=== PATIENT | female | born 1950 | race African-American/Black ===

== ENCOUNTER 2016-08-05 08:20 | Day surgery (SDC) | payer MEDICARE, OTHER ==
--- NOTE | 2016-07-30 11:25 | HISTORY AND PHYSICAL E ---
History and Physical NAME: VERITO ARCHIBALD : AGE: 66Y ADMITTED: 08/05/2016 ROOM: REFERRED BY: Dr. Ramos. CHIEF COMPLAINT: Patient admitted for upper scope. HISTORY OF PRESENT ILLNESS: Patient did have colonoscopy 2008. The patient does have history of colon polyps. At this time, patient for upper scope. We saw her in 2010, where she did have colorectal polyps. At this time, patient for upper scope. Colonoscopy 2010 showing polyps. Patient did have upper scope 2013, shows pre-pyloric, multiple gastric polyps. MEDICATION: Hydrochlorothiazide. PAST SURGICAL HISTORY: Complete hysterectomy. ALLERGY: PERCOCET. PHYSICAL EXAMINATION: VITAL SIGNS: Blood pressure 120/70. Pulse 80. Respirations 18. Temperature is 98. HEAD, EYES, EARS, NOSE, THROAT: Normal. ABDOMEN: Soft. NEUROLOGIC: Exam negative. CONCLUSION: 1. HISTORY OF PYLORIC GASTRIC POLYPS. 2. COLORECTAL POLYPS. 3. GALLBLADDER ULTRASOUND SHOWS A SMALL AMOUNT OF SLUDGE. LIVER AND KIDNEYS ARE NORMAL. 4. REFLUX. MEDICATIONS: 1. [place]-3. 2. Calcium. 3. Clonidine. PLAN: Upper scope. Today is 07/29; admit 08/05. DICTATING PHYSICIAN: GILA RODAS M.D. [id number] PHY#: [id number] ID: [id number] JOB#: [id number] ACCT: [id number] cc:GILA RODAS M.D. >
[2016-08-05] MEDS ORDERED: NALOXONE HCL INJ/PF 0.4 MG/1 ML SDV ONE (08:56)
[2016-08-05] MEDS ORDERED: GLYCOPYRROLATE INJ 0.4 MG/2 ML VIAL ONE (08:56)
[2016-08-05] MEDS ORDERED: ONDANSETRON HCL INJ/PF 4 MG/2 ML SDV ONE (08:56)
[2016-08-05] MEDS ORDERED: EPINEPHRINE INJ 1 MG/10 ML DISP.SYRIN ONE (08:57)
[2016-08-05] MEDS ORDERED: FLUMAZENIL INJ 0.5 MG/5 ML VIAL IV ONE (08:57)
[2016-08-05] MEDS: MIDAZOLAM 2 MG/2 ML INJ ONE ×3 (09:19→09:33)
[2016-08-05] MEDS: FENTANYL CITRATE INJ/PF 100 MCG/2 ML AMPUL ONE ×2 (09:21→09:23)
--- NOTE | 2016-08-05 10:10 | DISCHARGE SUMMARY E ---
Discharge Summary NAME: VERITO ARCHIBALD : 1950 AGE: 66Y ADMITTED: 08/05/2016 DISCHARGED: 08/05/2016 FINAL DIAGNOSIS: Gastric polyps. HISTORY: This 66-year-old female underwent upper endoscopy for reflux and gastric polyps. Today's upper scope shows no malignancy, benign-looking gastric polyps. She did have gastric polypectomy with no difficulties. DISCHARGE PLAN: 1. Soft diet. 2. Hold aspirin. 3. Continue Nexium. 4. Awaiting biopsy results. 5. Baseline CBC and CEA. 6. She is to see us in the office in the next few days. DICTATING PHYSICIAN: GILA RODAS M.D. [id number] [id number] PHY#: [id number] ID: [id number] JOB#: [id number] ACCT: [id number] cc:GILA RODAS M.D., SWETANG M.D. >
[2016-08-05 10:41] VITALS: BP 131/76
[2016-08-05 10:44] LABS: ABSOLUTE BASOPHILS # (AUTO) 0.1 10^3/uL (0.0-0.2); ABSOLUTE EOSINOPHILS # (AUTO) 0.1 10^3/uL (0.0-0.6); ABSOLUTE LYMPHOCYTES (AUTO) 1.8 10^3/uL (0.5-4.7); ABSOLUTE MONOCYTES (AUTO) 0.8 10^3/uL (0.1-1.4); BASOPHILS % (AUTO) 1.4 % (0-2); EOSINOPHILS % (AUTO) 2.6 % (0-6); HEMOGLOBIN 12.5 g/dL (12.0-15.5); HGB HCT DIFFERENCE -0.5; LYMPHOCYTES % (AUTO) 37.4 % (13-45); MEAN CORPUSCULAR VOLUME 88 fl (80-97); MONOCYTES % (AUTO) 15.8 % (3-13); RED BLOOD COUNT 4.32 10^6/uL (3.72-5.28); SEGMENTED NEUTROPHILS % (AUTO) 42.8 % (42-78); WHITE BLOOD COUNT 4.8 10^3/uL (4.0-10.5)
--- NOTE | 2016-08-05 12:41 | OPERATIVE REPORT E ---
Operative Report NAME: VERITO ARCHIBALD : 1950 AGE: 66Y DATE OF SURGERY: ROOM: PREOPERATIVE DIAGNOSIS: Gastric polyps, reflux. POSTOPERATIVE DIAGNOSIS: Esophagitis, mild. Gastric polyps. Duodenitis. Mild gastritis. OPERATION: Esophagoscopy, gastroscopy, duodenoscopy. SURGEON: GILA RODAS M.D. ANESTHESIA: The patient is allergic to Xylocaine, so no spray was done. She was adequately sedated with Versed 3 and fentanyl 50. TISSUE REMOVED OR ALTERED: 1. Gastric biopsy for H. pylori. 2. Gastric polyp injected and resected, 0.5 cm in size. PROCEDURE: The baby scope was passed under guided vision. No difficulties. Esophagoscopy: Junction at 36 cm. Small hiatus hernia, thickening mucosa at the junction. Mild esophagitis. No stricture. Gastroscopy: Multiple sessile small benign polyps in the gastric antrum. In the gastric body, there was a pedunculated 1 cm polyp which was injected and resected. Nice clotting, no bleeding. Duodenoscopy: Mild duodenitis. DISCHARGE PLAN: Full liquid. Hold aspirin for a few days. Continue Nexium. Awaiting biopsy results. The patient is to see us in the office in the next few days. DICTATING PHYSICIAN: GILA RODAS M.D. [id number] [id number] [facility]#: [id number] ID: [id number] JOB#: [id number] ACCT: [id number] cc:GILA RODAS M.D., SWETANG M.D. >
== END 2016-08-05 10:45 | disposition home or self-care (01) ==
LOC: END 08:20
PROVIDERS: ATTEND Specialist
PROC: 0DB68ZX Excision of Stomach, Via Natural or Artificial Opening Endoscopic, Diagnostic (ICD-10-PCS; principal; 2016-08-05 09:00)
PROC: 3E0G8GC Introduction of Other Therapeutic Substance into Upper GI, Via Natural or Artificial Opening Endoscopic (ICD-10-PCS; 2016-08-05 09:00)
PROC: 0DB68ZX Excision of Stomach, Via Natural or Artificial Opening Endoscopic, Diagnostic (ICD-10-PCS; 2016-08-05 09:00)
DX: K21.0 Gastro-esophageal reflux disease with esophagitis (principal); K29.50 Unspecified chronic gastritis without bleeding; K31.7 Polyp of stomach and duodenum; R97.0 Elevated carcinoembryonic antigen [CEA]; K83.8 Other specified diseases of biliary tract; K29.80 Duodenitis without bleeding; Z79.899 Other long term (current) drug therapy; Z88.5 Allergy status to narcotic agent
CPT/HCPCS: 43236; 43239; 43251; 36415; 82378; 85025; 88342 ×2; 88305 ×2; J2250; J3010; J2405; J0171; J2310; J3490

== ENCOUNTER → 2016-08-06 | Outpatient (CLI) | payer MEDICARE, OTHER ==
[2016-08-07 11:06] LABS: BLOOD UREA NITROGEN 9 mg/dL (7-20); CALCIUM 9.7 mg/dL (8.4-10.2); CHLORIDE 104 mmol/L (98-107); CREATININE RESULT 0.66 mg/dL (0.52-1.25); GLUCOSE 90 mg/dL (75-110); POTASSIUM 4.4 mmol/L (3.6-5.0)
[2016-08-07 11:07] LABS: CARBON DIOXIDE 30 mmol/L (22-30)
[2016-08-07 11:08] LABS: ANION GAP 11 (5-19); SODIUM 144.6 mmol/L (137-145)
[2016-08-07 15:40] LABS: APPEARANCE,URINE CLEAR; BILIRUBIN,URINE NEGATIVE (NEGATIVE); GLUCOSE, URINE NEGATIVE (NEGATIVE); KETONES,URINE NEGATIVE (NEGATIVE); LEUKOCYTE ESTERASE,URINE NEGATIVE (NEGATIVE); NITRITE,URINE NEGATIVE (NEGATIVE); PROTEIN,URINE NEGATIVE (NEGATIVE); URINE SPECIFIC GRAVITY 1.008; UROBILINOGEN,URINE NEGATIVE mg/dL (<2.0)
[2016-08-07 16:05] LABS: ABSOLUTE BASOPHILS # (AUTO) 0.1 10^3/uL (0.0-0.2); ABSOLUTE EOSINOPHILS # (AUTO) 0.1 10^3/uL (0.0-0.6); ABSOLUTE LYMPHOCYTES (AUTO) 2.1 10^3/uL (0.5-4.7); ABSOLUTE MONOCYTES (AUTO) 0.7 10^3/uL (0.1-1.4); ABSOLUTE NEUT (AUTO) 1.6 10^3/uL (1.7-8.2); BASOPHILS % (AUTO) 1.9 % (0-2); EOSINOPHILS % (AUTO) 2.3 % (0-6); HEMATOCRIT 40.1 % (36.0-47.0); HEMOGLOBIN 13.1 g/dL (12.0-15.5); HGB HCT DIFFERENCE -0.8; LYMPHOCYTES % (AUTO) 46.1 % (13-45); MEAN CORPUSCULAR HEMOGLOBIN 28.9 pg (27.0-33.4); MEAN CORPUSCULAR HGB CONC 32.5 g/dL (32.0-36.0); MEAN CORPUSCULAR VOLUME 89 fl (80-97); MONOCYTES % (AUTO) 15.2 % (3-13); RED BLOOD COUNT 4.51 10^6/uL (3.72-5.28); RED CELL DISTRIBUTION WIDTH 14.3 % (11.5-14.0); SEGMENTED NEUTROPHILS % (AUTO) 34.5 % (42-78); WHITE BLOOD COUNT 4.6 10^3/uL (4.0-10.5)
--- NOTE | 2016-08-09 17:41 | EKG REPORT ---
SEVERITY:- BORDERLINE ECG - SINUS RHYTHM BORDERLINE T ABNORMALITIES, ANTERIOR LEADS : Confirmed by: Gisele Jung MD 09-Aug-2016 17:40:09
== END ==
LOC: OD 21:49
PROVIDERS: ATTEND Orthopaedic Surgery
DX: Z01.818 Encounter for other preprocedural examination (principal)
CPT/HCPCS: 36415; 71020; 80048; 81001; 85025; 93005; 93010

== ENCOUNTER 2016-08-29 08:00 | Day surgery (SDC) | payer MEDICARE, OTHER ==
--- NOTE | 2016-08-28 11:29 | HISTORY AND PHYSICAL E ---
History and Physical NAME: VERITO ARCHIBALD : 1950 AGE: 66Y ADMITTED: 08/29/2016 ROOM: Admit for colon screening. ALLERGIES: The patient allergic to PERCOCET. PATIENT MEDICATIONS: 1. [place]. 2. Calcium. 3. Nexium. CHIEF COMPLAINT: Colon screening. HISTORY: I saw the patient in 2004. She did have polyps on colonoscopy in 2004, rectosigmoid hyperplastic polyps. Colonoscopy in 2007 shows small polyps transverse colon, benign hyperplastic. Another colonoscopy done showing the following, the patient's colonoscopy showing polyps in 2013. The patient did have a history of polyps and admitted for colonoscopy. She does have a history of gastric polyps. PHYSICAL EXAMINATION: GENERAL: Pleasant, alert, oriented. VITAL SIGNS: Blood pressure 120/80, pulse 80, respirations 18, temperature 98. HEAD, EYES, EARS, NOSE AND THROAT: Normal. ABDOMEN: Soft. NEUROLOGIC EXAM: Negative. CONCLUSION: COLON SCREENING. PLAN: Colonoscopy. REVIEW OF SYSTEMS: History of reflux, polyps, hiatus hernia. The patient presented at this time regarding colon exam. She does have a recent history of upper scope and polypectomy. The patient did have chest x-ray atherosclerosis, slight tortuosity in the thoracic aorta, some thoracic osteophytosis hiatus hernia. CONCLUSION: 1. COLON SCREENING. 2. HISTORY OF POLYPS. PLAN: 1. Colonoscopy. 2. A planned colon exam. The patient will present at this time for colon screening. She does have a family history of colon cancer. PLAN: 1. Colon screening. 2. Colonoscopy admit 08/29/2016. DICTATING PHYSICIAN: GILA RODAS M.D. [id number] [id number] PHY#: [id number] ID: [id number] JOB#: [id number] ACCT: [id number] cc:Mary BABIN M.D. >
[~2016-08-29 08:00] MED LIST: EPINEPHRINE INJ 1 MG/10 ML DISP.SYRIN ONE; FLUMAZENIL INJ 0.5 MG/5 ML VIAL IV ONE; GLUCAGON,HUMAN RECOMB 1 MG INJ ONE; GLYCOPYRROLATE INJ 0.4 MG/2 ML VIAL ONE; LIDOCAINE 2% JELLY 30 ML TUBE ONE; MIDAZOLAM 2 MG/2 ML INJ ONE; NALOXONE HCL INJ/PF 0.4 MG/1 ML SDV ONE; ONDANSETRON HCL INJ/PF 4 MG/2 ML SDV ONE
[2016-08-29] MEDS: MIDAZOLAM 2 MG/2 ML INJ ONE ×2 (08:33→08:41)
[2016-08-29] MEDS: FENTANYL CITRATE INJ/PF 100 MCG/2 ML AMPUL ONE ×3 (08:35→08:43)
[2016-08-29 10:04] VITALS: BP 142/82
[2016-08-29 10:12] LABS: ABSOLUTE EOSINOPHILS # (AUTO) 0.1 10^3/uL (0.0-0.6); ABSOLUTE LYMPHOCYTES (AUTO) 1.7 10^3/uL (0.5-4.7); ABSOLUTE MONOCYTES (AUTO) 0.6 10^3/uL (0.1-1.4); ABSOLUTE NEUT (AUTO) 3.8 10^3/uL (1.7-8.2); BASOPHILS % (AUTO) 0.7 % (0-2); EOSINOPHILS % (AUTO) 1.3 % (0-6); HEMATOCRIT 41.2 % (36.0-47.0); HEMOGLOBIN 13.1 g/dL (12.0-15.5); HGB HCT DIFFERENCE -1.9; LYMPHOCYTES % (AUTO) 26.5 % (13-45); MEAN CORPUSCULAR HEMOGLOBIN 28.7 pg (27.0-33.4); MEAN CORPUSCULAR HGB CONC 31.7 g/dL (32.0-36.0); MEAN CORPUSCULAR VOLUME 90 fl (80-97); MONOCYTES % (AUTO) 10.2 % (3-13); RED BLOOD COUNT 4.56 10^6/uL (3.72-5.28); SEGMENTED NEUTROPHILS % (AUTO) 61.3 % (42-78); WHITE BLOOD COUNT 6.3 10^3/uL (4.0-10.5)
--- NOTE | 2016-08-31 18:32 | DISCHARGE SUMMARY E ---
Discharge Summary NAME: VERITO ARCHIBALD : 1950 AGE: 66Y ADMITTED: 08/29/2016 DISCHARGED: 08/29/2016 HISTORY: The patient is a 66-year-old who underwent colon screening today showing 2 mm polyp sigmoid, 3 mm polyp transverse colon. FINAL DIAGNOSIS: Colon polyps. DISCHARGE PLAN: 1. Hold aspirin. 2. Baseline CBC, CEA. 3. Consider followup colonoscopy 2 years to be done in the OR with anesthesia standby. 4. Awaiting biopsy. 5. Soft diet. 6. Followup office visit 1 week. DICTATING PHYSICIAN: GILA RODAS M.D. [id number] PHY#: [id number] ID: [id number] JOB#: [id number] ACCT: [id number] cc:GILA RODAS M.D. >
--- NOTE | 2016-08-31 18:32 | OPERATIVE REPORT E ---
Operative Report NAME: VERITO ARCHIBALD : 1950 AGE: 66Y DATE OF SURGERY: 08/29/2016 ROOM: PREOPERATIVE DIAGNOSIS: COLON SCREENING. POSTOPERATIVE DIAGNOSES: 1. A 2 MM POLYP SIGMOID, BIOPSY OBTAINED. 2. A 3 MM POLYP MIDTRANSVERSE COLON, BIOPSY OBTAINED. OPERATION: Colonoscopy to the cecum. SURGEON: GILA RODAS M.D. ANESTHESIA: Versed 3, fentanyl 100. TISSUE REMOVED OR ALTERED: 1. Biopsy polyp sigmoid. 2. Biopsy polyp midtransverse colon. FINDINGS: Redundant colon. No evidence of malignancy. Benign looking polyps sigmoid and transverse colon. Difficult redundant colon. The patient did have hysterectomy scar. Colonoscopy completed to the cecum. RECOMMENDATIONS: Awaiting biopsy. Hold aspirin 5 days. Consider followup colonoscopy 2 years. History of polyps and family history of colorectal polyps. PROCEDURE: Rectal exam; normal. Sigmoid; 2 mm polyp removed by biopsy. Descending colon; redundant. Transverse colon; difficult to intubate, adhesions. Small 3 mm polyp removed by 2 biopsies. Ascending colon; normal. Cecum; orifice of the appendix visualized. Scope withdrawn cecum, ascending, transverse, descending, sigmoid all the way to the rectum. CONCLUSIONS: 1. Polyp sigmoid 2 mm. 2. Polyp transverse colon 3 mm. RECOMMENDATIONS: Recommend followup colonoscopy in 2 years. The patient may need to be done in the OR with conscious sedation and deep relaxation secondary to the redundant colon. DICTATING PHYSICIAN: GILA RODAS M.D. [id number] [id number] PHY#: [id number] ID: [id number] JOB#: [id number] ACCT: [id number] cc:GILA RODAS M.D., SWETANG M.D. >
== END 2016-08-29 10:05 | disposition home or self-care (01) ==
LOC: END 08:00
PROVIDERS: ATTEND Specialist
PROC: 0DBL8ZX Excision of Transverse Colon, Via Natural or Artificial Opening Endoscopic, Diagnostic (ICD-10-PCS; 2016-08-29)
PROC: 0DBN8ZX Excision of Sigmoid Colon, Via Natural or Artificial Opening Endoscopic, Diagnostic (ICD-10-PCS; principal; 2016-08-29 08:00)
DX: Z12.11 Encounter for screening for malignant neoplasm of colon (principal); D12.5 Benign neoplasm of sigmoid colon; D12.3 Benign neoplasm of transverse colon; K44.9 Diaphragmatic hernia without obstruction or gangrene; Z79.899 Other long term (current) drug therapy; R97.0 Elevated carcinoembryonic antigen [CEA]
CPT/HCPCS: 45380; 36415; 82378; 85025; 88305 ×2; J2250; J3010; J1610; J2405; J0171; J2310; J3490

== ENCOUNTER → 2016-09-22 | Outpatient (CLI) | payer MEDICARE, OTHER ==
[2016-09-22 11:18] LABS: ABSOLUTE BASOPHILS # (AUTO) 0.1 10^3/uL (0.0-0.2); ABSOLUTE EOSINOPHILS # (AUTO) 0.1 10^3/uL (0.0-0.6); ABSOLUTE LYMPHOCYTES (AUTO) 1.8 10^3/uL (0.5-4.7); ABSOLUTE MONOCYTES (AUTO) 0.6 10^3/uL (0.1-1.4); ABSOLUTE NEUT (AUTO) 2.1 10^3/uL (1.7-8.2); BASOPHILS % (AUTO) 1.3 % (0-2); EOSINOPHILS % (AUTO) 1.9 % (0-6); HEMATOCRIT 42.2 % (36.0-47.0); HEMOGLOBIN 13.2 g/dL (12.0-15.5); HGB HCT DIFFERENCE -2.6; LYMPHOCYTES % (AUTO) 39.7 % (13-45); MEAN CORPUSCULAR HEMOGLOBIN 28.3 pg (27.0-33.4); MEAN CORPUSCULAR HGB CONC 31.2 g/dL (32.0-36.0); MEAN CORPUSCULAR VOLUME 91 fl (80-97); MONOCYTES % (AUTO) 11.9 % (3-13); RED BLOOD COUNT 4.65 10^6/uL (3.72-5.28); RED CELL DISTRIBUTION WIDTH 14.1 % (11.5-14.0); SEGMENTED NEUTROPHILS % (AUTO) 45.2 % (42-78); WHITE BLOOD COUNT 4.7 10^3/uL (4.0-10.5)
[2016-09-22 11:31] LABS: APPEARANCE,URINE CLEAR; BILIRUBIN,URINE NEGATIVE (NEGATIVE); GLUCOSE, URINE NEGATIVE (NEGATIVE); KETONES,URINE NEGATIVE (NEGATIVE); LEUKOCYTE ESTERASE,URINE NEGATIVE (NEGATIVE); NITRITE,URINE NEGATIVE (NEGATIVE); PROTEIN,URINE NEGATIVE (NEGATIVE); UROBILINOGEN,URINE NEGATIVE mg/dL (<2.0)
[2016-09-22 11:49] LABS: ALANINE AMINOTRANSFERASE 21 U/L (9-52); ALBUMIN 4.2 g/dL (3.5-5.0); ALKALINE PHOSPHATASE 95 U/L (38-126); ANION GAP 12 (5-19); ASPARTATE AMINO TRANSFERASE 18 U/L (14-36); BILIRUBIN,DIRECT 0.2 mg/dL (0.0-0.4); BILIRUBIN,TOTAL 0.9 mg/dL (0.2-1.3); BLOOD UREA NITROGEN 13 mg/dL (7-20); CALCIUM 9.7 mg/dL (8.4-10.2); CARBON DIOXIDE 29 mmol/L (22-30); CHLORIDE 104 mmol/L (98-107); CREATINE KINASE 40 U/L (30-135); CREATININE RESULT 0.66 mg/dL (0.52-1.25); GLUCOSE 91 mg/dL (75-110); POTASSIUM 4.2 mmol/L (3.6-5.0); SODIUM 145.1 mmol/L (137-145); TOTAL PROTEIN 8.2 g/dL (6.3-8.2); URIC ACID 5.2 mg/dL (2.5-7.5)
[2016-09-22 11:52] LABS: C-REACTIVE PROTEIN < 5.0 mg/L (<10.0)
[2016-09-22 11:57] LABS: ERYTHROCYTE SEDIMENTATION RATE 38 mm/hr (0-30)
[2016-09-23 06:38] LABS: COMPLEMENT C4 28 mg/dL (14-44)
[2016-09-23 09:41] LABS: COMPLEMENT C3 146 mg/dL (82-167)
[2016-09-25 07:04] LABS: COMPLEMENT TOTAL (CH50) 60 U/mL (42-60)
== END ==
LOC: OD 10:17
PROVIDERS: ATTEND Internal Medicine Clinical Cardiac Electrophysiology
DX: M35.9 Systemic involvement of connective tissue, unspecified (principal); M15.0 Primary generalized (osteo)arthritis; M79.1 Myalgia; Z79.899 Other long term (current) drug therapy
CPT/HCPCS: 36415; 80053; 81001; 82550; 84550; 85025; 85652; 86140; 86160; 86162; 86225

== ENCOUNTER 2016-09-29 05:22 | Inpatient (IN) | payer MEDICARE, OTHER ==
[2016-09-22 11:25] LABS: HEMATOCRIT 42.2 % (36.0-47.0); HEMOGLOBIN 13.2 g/dL (12.0-15.5); HGB HCT DIFFERENCE -2.6; MEAN CORPUSCULAR HEMOGLOBIN 28.3 pg (27.0-33.4); MEAN CORPUSCULAR HGB CONC 31.2 g/dL (32.0-36.0); MEAN CORPUSCULAR VOLUME 91 fl (80-97); RED BLOOD COUNT 4.65 10^6/uL (3.72-5.28); RED CELL DISTRIBUTION WIDTH 14.1 % (11.5-14.0); WHITE BLOOD COUNT 4.7 10^3/uL (4.0-10.5)
[2016-09-22 11:28] LABS: APPEARANCE,URINE CLEAR; BILIRUBIN,URINE NEGATIVE (NEGATIVE); GLUCOSE, URINE NEGATIVE (NEGATIVE); KETONES,URINE NEGATIVE (NEGATIVE); LEUKOCYTE ESTERASE,URINE NEGATIVE (NEGATIVE); NITRITE,URINE NEGATIVE (NEGATIVE); PROTEIN,URINE NEGATIVE (NEGATIVE); UROBILINOGEN,URINE NEGATIVE mg/dL (<2.0)
[2016-09-22 11:56] LABS: BLOOD UREA NITROGEN 13 mg/dL (7-20); CALCIUM 9.7 mg/dL (8.4-10.2); CARBON DIOXIDE 29 mmol/L (22-30); CHLORIDE 104 mmol/L (98-107); CREATININE RESULT 0.66 mg/dL (0.52-1.25); GLUCOSE 91 mg/dL (75-110); POTASSIUM 4.2 mmol/L (3.6-5.0); SODIUM 145.1 mmol/L (137-145)
[2016-09-22 11:57] LABS: ANION GAP 12 (5-19)
[~2016-09-29 05:22] MED LIST changes: +BUPIVACAINE INJ/PF LIPOSOME/PF 266 MG/20 ML SDV IJ PRN; +CEFAZOLIN INJ 1 GM VIAL IV PRN; -EPINEPHRINE INJ 1 MG/10 ML DISP.SYRIN ONE; -FLUMAZENIL INJ 0.5 MG/5 ML VIAL IV ONE; -GLUCAGON,HUMAN RECOMB 1 MG INJ ONE; -GLYCOPYRROLATE INJ 0.4 MG/2 ML VIAL ONE; +IBUPROFEN 800 MG/NS 250 ML IV PRN; +LANSOPRAZOLE 15 MG TAB.RAP.DR PO PRN; -LIDOCAINE 2% JELLY 30 ML TUBE ONE; -MIDAZOLAM 2 MG/2 ML INJ ONE; -NALOXONE HCL INJ/PF 0.4 MG/1 ML SDV ONE; -ONDANSETRON HCL INJ/PF 4 MG/2 ML SDV ONE; +OXYCODONE HCL SR 10 MG TABLET PO PRN; +SCOPOLAMINE HYDROBROMIDE 1.5 MG PATCH.TD72 TOP PRN; +VANCOMYCIN HCL 1,000 MG in DEXTROSE 5%-WATER 250 ML IV PRN
[2016-09-29] MEDS ORDERED: BUPIVACAINE INJ/PF LIPOSOME/PF 266 MG/20 ML SDV ONE (06:44)
[2016-09-29] MEDS ORDERED: THROMBIN (BOVINE) TOPICAL 20000 UNIT VIAL ONE (06:44)
[2016-09-29] MEDS ORDERED: THROMBIN (BOVINE) 5000 UNIT EPITAXIS KIT ONE (06:44)
[2016-09-29] MEDS ORDERED: DEXAMETHASONE SOD PHOSPHATE INJ 4 MG/1 ML VIAL ONE (06:51)
[2016-09-29] MEDS ORDERED: FENTANYL CITRATE INJ/PF 100 MCG/2 ML AMPUL ONE (06:51)
[2016-09-29] MEDS ORDERED: MIDAZOLAM 2 MG/2 ML INJ ONE (06:51)
[2016-09-29] MEDS ORDERED: PROPOFOL INJ 200 MG/20 ML VIAL IV ONE (06:52)
[2016-09-29] MEDS ORDERED: TRANEXAMIC ACID INJ/PF 1,000 MG/10 ML SDV IV ONE ×2 (06:52→11:00)
[2016-09-29] MEDS ORDERED: ONDANSETRON HCL INJ/PF 4 MG/2 ML SDV ONE (06:52)
[2016-09-29] MEDS ORDERED: DIPHENHYDRAMINE HCL 50 MG/ML VIAL IV PRN ×2 (07:55→08:41)
[2016-09-29] MEDS ORDERED: MEPERIDINE HCL/PF INJ 25 MG/1 ML DISP.SYRIN IV PRN (07:55)
[2016-09-29] MEDS ORDERED: PROMETHAZINE HCL INJ 25 MG/1 ML VIAL IV PRN (07:55)
[2016-09-29] MEDS ORDERED: FENTANYL CITRATE INJ/PF 100 MCG/2 ML AMPUL IV PRN ×3 (07:55)
[2016-09-29] MEDS ORDERED: OXYCODONE HCL IR 5 MG TABLET PO PRN (08:41)
[2016-09-29] MEDS ORDERED: ONDANSETRON HCL INJ/PF 4 MG/2 ML SDV IV PRN ×2 (08:41→09:41)
[2016-09-29] MEDS ORDERED: MORPHINE SULFATE 10 MG/ML INJ IV PRN ×3 (08:41)
[2016-09-29] MEDS ORDERED: MAG HYDROX/AL HYDROX/SIMETH SUSP 30 ML UDCUP PO PRN (08:41)
[2016-09-29] MEDS ORDERED: ACETAMINOPHEN 325 MG TABLET PO PRN (08:41)
[2016-09-29] MEDS ORDERED: ZOLPIDEM TARTRATE 5 MG TABLET PO PRN (08:41)
[2016-09-29] MEDS ORDERED: RINGERS SOLUTION,LACTATED 1,000 ML IV PRN (08:41)
[2016-09-29] MEDS ORDERED: MORPHINE SULFATE 10 MG/ML INJ IM PRN (08:41)
[2016-09-29] MEDS ORDERED: CETIRIZINE 10 MG TABLET PO PRN (08:41)
--- NOTE | 2016-09-29 08:41 | Operative Report ---
Operative Report DATE OF SURGERY: 09/29/16 PREOPERATIVE DIAGNOSIS: Right knee osteoarthritis OPERATION: Knee arthroplasty SURGEON: STUART HERNANDEZ ANESTHESIA: Spinal TISSUE REMOVED OR ALTERED: Bone to pathology ESTIMATED BLOOD LOSS: 100 PROCEDURE: Implants used: Femur: Triathlon #6 PS femur Tibia: 5 tibia Tibial liner: 11 mm PS insert Patella: 32 millimeter oval patella Procedure with the patient supine on the operating table the right the limb is prepped and draped in a sterile fashion. The limb was elevated for exsanguination and the tourniquet inflated to 280 torr. A standard midline median parapatellar approach the knee is taken. Access is gained to the femoral canal through the intercondylar notch. Intramedullary alignment instrumentation used to resect 10 mm of distal femur in 5 of valgus. Sizing guide indicated a size 6 femur. Appropriate cutting jig is then used to fashion anterior posterior and chamfer cuts. A trial reduction femurs performed and this is judged to be adequate. Attention was next turned to the tibia. Using an extra medullary alignment system to millimeters was resected off the medial tibial plateau. This is sized to a size 5 tibia. A trial reduction was now performed with a six femur and a 5 tibia using a 11 millimeters spacer. It is full extension and central patellofemoral tracking. The articular surface the patella was next resected using an oscillating saw. All trial implants were removed. Polymethylmethacrylate is mixed and used to cement the above implants in place. On adequate curing the cement excess cement was removed the tourniquet was deflated hemostasis obtained the wound is then closed in layers using interrupted Vicryl followed by clau. A sterile compressive dressing was applied and the patient returned to recovery room in satisfactory condition.
--- NOTE | 2016-09-29 09:31 | RADIOLOGY REPORT (SQ) ---
EXAM DESCRIPTION: KNEE RIGHT 2 VIEWS COMPLETED DATE/TIME: 09/29/2016 9:20 am REASON FOR STUDY: Post OP -Long Cassette in PACU M17.11 UNILATERAL PRIMARY OSTEOARTHRITIS, RIGHT KN EE COMPARISON: None. NUMBER OF VIEWS: Two view(s). TECHNIQUE: Digital radiographic images of the right knee post-procedure. LIMITATIONS: None. FINDINGS: BONES: No worrisome or unexpected findings post-procedure. DEVICE: Total knee arthroplasty SOFT TISSUES: No worrisome findings. Expected postoperative soft tissue changes. IMPRESSION: SATISFACTORY POSTOPERATIVE RIGHT KNEE. TECHNICAL DOCUMENTATION: JOB ID: [id number] [employer]- All Rights Reserved
[2016-09-29] MEDS ORDERED: ASCORBIC ACID 500 MG TABLET PO SCH (10:00)
[2016-09-29] MEDS ORDERED: NITROGLYCERIN 5 MG (0.2 MG/HR) PATCH.TD24 TD SCH (10:00)
[2016-09-29] MEDS ORDERED: (PENDING PHARMACY ID) (Calcium Carbonate/Vitamin D3 [Calcium 500 + Vit D Caplet] 1 TAB) PO SCH (10:00)
[2016-09-29] MEDS ORDERED: AMLODIPINE BESYLATE 5 MG TABLET PO SCH ×2 (10:00→22:00)
[2016-09-29] MEDS ORDERED: (PENDING PHARMACY ID) (Pravastatin Sodium [Pravastatin Sodium] 20 MG) PO SCH (10:00)
[2016-09-29] MEDS ORDERED: (PENDING PHARMACY ID) (Telmisartan [Micardis 80 Mg Tablet] 80 MG) PO SCH (10:00)
[2016-09-29] MEDS ORDERED: SENNOSIDES/DOCUSATE 8.6-50 MG 1 EACH TABLET PO SCH ×2 (10:00→18:00)
[2016-09-29] MEDS: OXYCODONE HCL SR 10 MG TABLET PO SCH ×2 (11:15→22:04)
[2016-09-29] MEDS ORDERED: OXYCODONE HCL SR 10 MG TABLET PO ONE (13:30)
[2016-09-29] MEDS ORDERED: PREGABALIN 75 MG CAPSULE PO SCH ×2 (18:00→22:00)
[2016-09-29] MEDS: IBUPROFEN 800 MG in NORMAL SALINE 250 ML IV SCH (18:03)
[2016-09-29] MEDS: CALCIUM CARBONATE 250 MG/VITAMIN D3 125 UNIT TABLET PO SCH (18:05)
[2016-09-29] MEDS ORDERED: VANCOMYCIN HCL 1,000 MG in DEXTROSE 5%-WATER 250 ML IV ONE (20:42)
[2016-09-29] MEDS ORDERED: RIVAROXABAN 10 MG TABLET PO SCH (22:00)
[2016-09-29] MEDS ORDERED: METOPROLOL TARTRATE 50 MG TABLET PO SCH (22:00)
[2016-09-30] MEDS: IBUPROFEN 800 MG in NORMAL SALINE 250 ML IV SCH (03:19)
[2016-09-30 06:00] LABS: ANION GAP 9 (5-19); BLOOD UREA NITROGEN 20 mg/dL (7-20); CALCIUM 9.1 mg/dL (8.4-10.2); CARBON DIOXIDE 25 mmol/L (22-30); CHLORIDE 104 mmol/L (98-107); CREATININE RESULT 0.72 mg/dL (0.52-1.25); GLUCOSE 105 mg/dL (75-110); POTASSIUM 3.9 mmol/L (3.6-5.0); SODIUM 138.4 mmol/L (137-145)
[2016-09-30] MEDS ORDERED: LANSOPRAZOLE 30 MG TAB.RAP.DR PO SCH (06:00)
[2016-09-30 06:07] LABS: HEMATOCRIT 35.1 % (36.0-47.0); HEMOGLOBIN 11.1 g/dL (12.0-15.5); HGB HCT DIFFERENCE -1.8; MEAN CORPUSCULAR HEMOGLOBIN 28.2 pg (27.0-33.4); MEAN CORPUSCULAR HGB CONC 31.8 g/dL (32.0-36.0); MEAN CORPUSCULAR VOLUME 89 fl (80-97); RED BLOOD COUNT 3.95 10^6/uL (3.72-5.28); RED CELL DISTRIBUTION WIDTH 14.1 % (11.5-14.0); WHITE BLOOD COUNT 9.4 10^3/uL (4.0-10.5)
--- NOTE | 2016-09-30 06:59 | PDOC DISCHARGE SUMMARY ---
General - Admit/Disc Date/PCP Admission Date/Primary Care Provider: 09/29/16 05:22 JACKSON MCGRATH MD Discharge Date: 09/30/16 - Discharge Diagnosis (1) Arthritis of right knee Is this a current diagnosis for this admission?: Yes - Additional Information Resuscitation Status: Full Code Discharge Activity: Balance Activity w/Rest, No Driving, No tub bath Home Medications: Telmisartan [Micardis 80 mg Tablet] 80 mg PO DAILY 05/06/11 Amlodipine Besylate [Norvasc 5 mg Tablet] 5 mg PO Q12 #0 tablet 10/03/15 Metoprolol Tartrate [Lopressor 50 mg Tablet] 50 mg PO Q12H #0 tablet 10/03/15 Nitroglycerin [Nitro-Dur 5 mg (0.2 mg/Hr) Transdermal Patch] 1 each TD DAILY # 0 patch.td24 10/03/15 Ascorbic Acid [Vitamin C 500 mg Tablet] 500 mg PO DAILY 07/22/16 Aspirin [Ecotrin 81 mg EC Tablet] 81 mg PO DAILY 07/22/16 Calcium Carbonate/Vitamin D3 [Calcium 500 + Vit D Caplet] 1 tab PO BID 07/22/16 Cetirizine HCl [Zyrtec 10 mg Tablet] 1 tab PO PRN PRN 07/22/16 Esomeprazole Mag Trihydrate [Nexium] 40 mg PO QAM 07/22/16 Multivitamin [One-A-Day Essential] 1 tab PO BID 07/22/16 [place]-3 Fatty Acids/Fish Oil [Fish Oil 1,000 mg Capsule] 2 tab PO DAILY Pravastatin Sodium 20 mg PO DAILY 07/22/16 Pravastatin Sodium 10 mg PO QAM 09/26/16 Oxycodone HCl [Oxy-Ir 5 mg Tablet] 5 mg PO Q6HP PRN #0 tablet 09/30/16 Rivaroxaban [Xarelto 10 mg Tablet] 10 mg PO QHS #0 tablet 09/30/16 History of Present Illness History of Present Illness: VERITO ARCHIBALD is a 66 year old female right knee pain and functional disability secondary osteoarthritis. Patient is admitted for an elective right knee arthroplasty. Hospital Course Hospital Course: Admitted through the operating room where she undergoes an uncomplicated right knee arthroplasty. She is returned to the floor in satisfactory condition. She ambulates 150 feet with physical therapy on the day of surgery. She substrate for discharge home with home health nursing and home health physical therapy. Physical Exam Vital Signs: Temp Pulse Resp BP Pulse Ox 36.8 C 67 16 117/82 96 09/30/16 00:20 09/30/16 00:20 09/30/16 00:20 09/30/16 00:20 09/30/16 00:20 Intake & Output 09/28/16 09/29/16 09/30/16 06:59 06:59 06:59 Intake Total 0 5088 Output Total 4525 Balance 0 563 Weight 118.1 kg General appearance: PRESENT: no acute distress Head exam: PRESENT: normocephalic Eye exam: PRESENT: EOMI Respiratory exam: PRESENT: unlabored Cardiovascular exam: PRESENT: RRR Pulses: PRESENT: +1 pedal pulses bilateral Vascular exam: PRESENT: normal capillary refill GI/Abdominal exam: PRESENT: soft Rectal exam: PRESENT: deferred Extremities exam: PRESENT: other - Lower extremity picot dressing is clean dry and intact. There is a small amount of pedal edema. Distal neurovascular examination is intact. 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 Neurological exam: PRESENT: alert, awake, oriented to person, oriented to place , oriented to time, oriented to situation. ABSENT: motor sensory deficit Psychiatric exam: PRESENT: appropriate affect, normal mood. ABSENT: homicidal ideation, suicidal ideation Skin exam: PRESENT: dry, intact, warm. ABSENT: cyanosis, rash Results Laboratory Results: 09/30/16 05:25 09/30/16 05:25 09/30/16 09/30/16 05:25 05:25 WBC 9.4 RBC 3.95 Hgb 11.1 L Hct 35.1 L MCV 89 MCH 28.2 MCHC 31.8 L RDW 14.1 H Plt Count 164 Sodium 138.4 Potassium 3.9 Chloride 104 Carbon Dioxide 25 Anion Gap 9 BUN 20 Creatinine 0.72 Est GFR ( Amer) > 60 Est GFR (Non-Af Amer) > 60 Glucose 105 Calcium 9.1 Impressions: Knee X-Ray 09/29/16 08:42 IMPRESSION: SATISFACTORY POSTOPERATIVE RIGHT KNEE. Status: Imported from PACS Plan Discharge Plan: Be discharged home with home health nursing, home health physical therapy, wheeled walker, bedside commode. Right knee picot dressing can be changed by the visiting nurse service on postop day 7. Follow-up will be with Dr. Emanuel and [facility] for surgery in 2 weeks for staple removal.
[2016-09-30] MEDS ORDERED: OXYCODONE HCL SR 10 MG TABLET PO SCH (07:30)
[2016-09-30] MEDS ORDERED: (PENDING PHARMACY ID) (Esomeprazole Mag Trihydrate [Nexium] 40 MG) PO SCH (08:00)
[2016-09-30] MEDS ORDERED: (PENDING PHARMACY ID) (Pravastatin Sodium [Pravastatin Sodium] 10 MG) PO SCH (08:00)
[2016-09-30] MEDS: CALCIUM CARBONATE 250 MG/VITAMIN D3 125 UNIT TABLET PO SCH (08:23)
[2016-09-30 08:37] VITALS: BP 141/93
[2016-09-30] MEDS ORDERED: LOSARTAN POTASSIUM 50 MG TABLET PO SCH (10:00)
[2016-09-30] MEDS ORDERED: ASCORBIC ACID 500 MG TABLET PO SCH (10:00)
[2016-09-30] MEDS ORDERED: PRENATAL VITAMIN W-O CA NO5/FE FUMARATE/FA CAPSULE PO SCH (10:00)
[2016-09-30] MEDS ORDERED: ATORVASTATIN CALCIUM 10 MG TABLET PO SCH (22:00)
== END 2016-09-30 10:59 | disposition home health service (06) | DRG 470 ==
LOC: INOR 05:22 → 4S 10:42
PROVIDERS: ADMIT Orthopaedic Surgery; ATTEND Orthopaedic Surgery
PROC: 0SRC0J9 Replacement of Right Knee Joint with Synthetic Substitute, Cemented, Open Approach (ICD-10-PCS; principal; 2016-09-29 07:30)
DX: M17.11 Unilateral primary osteoarthritis, right knee (principal); I10 Essential (primary) hypertension; Z96.652 Presence of left artificial knee joint; Z90.710 Acquired absence of both cervix and uterus; Z88.4 Allergy status to anesthetic agent; Z88.6 Allergy status to analgesic agent; Z79.899 Other long term (current) drug therapy; Z83.3 Family history of diabetes mellitus; Z82.49 Family history of ischemic heart disease and other diseases of the circulatory system
CPT/HCPCS: 01402; 36415; 80048; 81001; 85027; 88305; 88311; 94799; C1776; C9290; G8978-GP; G8979-GP; G8987-GO; G8988-GO; G8989-GO; J0690; J1100; J1741; J2250; J2405; J2704; J3010; J3370; J3490; J7050; J7060; J7120

== ENCOUNTER 2016-10-04 00:24 | Observation (INO) | payer MEDICARE, OTHER ==
[2016-10-04] MEDS ORDERED: VANCOMYCIN HCL INJ 1000 MG VIAL IV ONE (00:42)
[2016-10-04] MEDS ORDERED: CEFTRIAXONE INJ 1000 MG VIAL IV ONE (00:43)
--- NOTE | 2016-10-04 00:49 | ER Document Report ---
ED General - General Chief Complaint: Post Surgical Pain Stated Complaint: RIGHT KNEE PAIN Time Seen by Provider: 10/04/16 00:39 Notes: Patient is a 66-year-old female presents with complaint of pain in the right knee. She had surgery 5 days ago. His arthroplastic surgery on the right knee performed by Dr. Emanuel. Tonight she noticed increasing pain and swelling and redness and warmth to the right knee. No fevers. No vomiting. She is still able to flex and extend her knee but has some pain in doing so. No other complaints at this time. TRAVEL OUTSIDE OF THE [place] IN LAST 30 DAYS: No - Related Data Allergies/Adverse Reactions: hydrocodone bitartrate [From Vicodin] Allergy (Severe, Verified 08/29/16 07:13) swelling of lips, blisters lidocaine [Lidocaine] Allergy (Severe, Verified 08/29/16 07:13) CHANGES SKIN COLOR morphine Allergy (Intermediate, Verified 09/29/16 13:55) Pruritis acetaminophen [From Percocet] Adverse Reaction (Mild, Verified 09/29/16 13:55) Constipation oxycodone [From Percocet] Adverse Reaction (Mild, Verified 09/29/16 13:55) Constipation Past Medical History - Social History Smoking Status: Never Smoker Frequency of alcohol use: None Drug Abuse: None Family History: Reviewed & Not Pertinent Patient has suicidal ideation: No Patient has homicidal ideation: No - Past Medical History Cardiac Medical History: Reports: Hx Coronary Artery Disease, Hx Hypercholesterolemia, Hx Hypertension Denies: Hx Atrial Fibrillation, Hx Congestive Heart Failure, Hx Heart Attack , Hx Peripheral Vascular Disease, Hx Pulmonary Embolism, Hx Heart Murmur Pulmonary Medical History: Reports: Hx Pneumonia - 2009, Hx Sleep Apnea Denies: Hx Asthma, Hx Bronchitis, Hx COPD, Hx Respiratory Failure, Hx Tuberculosis Neurological Medical History: Denies: Hx Cerebrovascular Accident, Hx Seizures Endocrine Medical History: Reports: Hx Hypothyroidism. Denies: Hx Graves' Disease, Hx Hyperthyroidism Renal/ Medical History: Denies: Hx End Stage Renal Disease, Hx Kidney Stones, Hx Ovarian Cysts, Hx Peritoneal Dialysis, Hx Pelvic Inflammatory Disease Malignancy Medical History: Denies: Hx Breast Cancer, Hx Cervical Cancer, Hx Leukemia, Hx Lung Cancer, Hx Ovarian Cancer GI Medical History: Reports: Hx Gastroesophageal Reflux Disease, Hx Hiatal Hernia. Denies: Hx Crohn's Disease, Hx Irritable Bowel, Hx Liver Failure, Hx Ulcer Musculoskeltal Medical History: Reports Hx Arthritis, Denies Hx Fibromyalgia, Denies Hx Muscular Dystrophy Psychiatric Medical History: Traumatic Medical History: Denies: Hx Fractures Infectious Medical History: Denies: Hx HIV Past Surgical History: Reports: Hx Abdominal Surgery, Hx Hysterectomy, Hx Orthopedic Surgery - Left knee. Denies: Hx Appendectomy, Hx Bowel Surgery, Hx Section, Hx Cholecystectomy, Hx Colostomy, Hx Coronary Artery Bypass Graft, Hx Gastric Bypass Surgery, Hx Herniorrhaphy, Hx Mastectomy, Hx Pacemaker , Hx Tonsillectomy, Hx Tubal Ligation - Immunizations Hx Diphtheria, Pertussis, Tetanus Vaccination: No Hx Pneumococcal Vaccination: 03/23/12 Review of Systems - Review of Systems Notes: My Normal Review Basic REVIEW OF SYSTEMS: CONSTITUTIONAL : Denies fever, chills, or sweats. Denies recent illness. RESPIRATORY: Denies cough, cold, or chest congestion. Denies shortness of breath, difficulty breathing, or wheezing. MUSCULOSKELETAL: Right knee is swollen and red. SKIN: Denies rash or skin lesions. NEUROLOGICAL: Denies altered mental status or loss of consciousness. Denies headache. Denies weakness or paralysis or loss of use of either side. Denies problems with gait or speech. Denies sensory or motor loss. ALL OTHER SYSTEMS REVIEWED AND NEGATIVE. Physical Exam - Vital signs Vitals: Temp Pulse Resp BP Pulse Ox 98.3 F 73 18 111/70 97 10/04/16 00:29 10/04/16 00:29 10/04/16 00:29 10/04/16 00:29 10/04/16 00:29 - Notes Notes: General Appearance: Well nourished, alert, cooperative, no acute distress, no obvious discomfort. Well-appearing. Vitals: reviewed, See vital signs table. Eyes: PERRL, EOMI, Conjuctiva clear Mouth: No decreasd moisture Extremities: Patient has a linear postop bandage over the anterior aspect of the right knee. There is a negative pressure drain in the right knee. There is redness and erythema spreading from around the bandage. The knee is swollen. She is still able to flex and extend the knee without too much difficulty. Skin: warm, dry, appropriate color, no rash Neuro: speech clear, oriented x 3, normal affect, responds appropriately to questions. Course - Re-evaluation Re-evalutation: 10/04/16 01:43 Clinically patient has what appears to be a sub-cellulitis of the right knee. Currently I do not think she has a knee joint infection of her knee as she still has range of motion of the right knee. I did speak with Dr. Emanuel who agrees to admit the patient and he will reevaluate her in the morning. Dictation of this chart was performed using voice recognition software; therefore, there may be some unintended grammatical errors. - Vital Signs Vital signs: Temp Pulse Resp BP Pulse Ox 98.3 F 73 18 111/70 97 10/04/16 00:29 10/04/16 00:29 10/04/16 00:29 10/04/16 00:29 10/04/16 00:29 - Laboratory Result Diagrams: 10/04/16 00:48 10/04/16 00:48 Laboratory results interpreted by me: 10/04/16 00:48 RBC 3.41 L Hgb 9.6 L Hct 30.0 L Eosinophils % 7.4 H Absolute Eosinophils 0.7 H Discharge - Discharge Clinical Impression: Post op infection Qualifiers: Encounter type: initial encounter Qualified Code(s): T81.4XXA - Infection following a procedure, initial encounter Condition: Stable Disposition: ADMITTED OBSERVATION Admitting Provider: Dr. Emanuel Unit Admitted: Surgical Floor
[2016-10-04 01:01] LABS: ABSOLUTE BASOPHILS # (AUTO) 0.1 10^3/uL (0.0-0.2); ABSOLUTE EOSINOPHILS # (AUTO) 0.7 10^3/uL (0.0-0.6); ABSOLUTE MONOCYTES (AUTO) 1.1 10^3/uL (0.1-1.4); ABSOLUTE NEUT (AUTO) 5.1 10^3/uL (1.7-8.2); BASOPHILS % (AUTO) 1.2 % (0-2); EOSINOPHILS % (AUTO) 7.4 % (0-6); HEMOGLOBIN 9.6 g/dL (12.0-15.5); HGB HCT DIFFERENCE -1.2; LYMPHOCYTES % (AUTO) 21.8 % (13-45); MEAN CORPUSCULAR HEMOGLOBIN 28.3 pg (27.0-33.4); MEAN CORPUSCULAR HGB CONC 32.1 g/dL (32.0-36.0); MEAN CORPUSCULAR VOLUME 88 fl (80-97); MONOCYTES % (AUTO) 12.5 % (3-13); RED BLOOD COUNT 3.41 10^6/uL (3.72-5.28); RED CELL DISTRIBUTION WIDTH 13.6 % (11.5-14.0); SEGMENTED NEUTROPHILS % (AUTO) 57.1 % (42-78)
[2016-10-04 01:21] LABS: ANION GAP 10 (5-19); BLOOD UREA NITROGEN 13 mg/dL (7-20); CALCIUM 8.8 mg/dL (8.4-10.2); CARBON DIOXIDE 25 mmol/L (22-30); CHLORIDE 105 mmol/L (98-107); CREATININE RESULT 0.67 mg/dL (0.52-1.25); GLUCOSE 103 mg/dL (75-110); POTASSIUM 4.1 mmol/L (3.6-5.0); SODIUM 139.8 mmol/L (137-145)
[2016-10-04 01:53] LABS: ERYTHROCYTE SEDIMENTATION RATE 113 mm/hr (0-30)
[2016-10-04] MEDS ORDERED: GLUCAGON,HUMAN RECOMB 1 MG INJ SUBCUT PRN (03:09)
[2016-10-04] MEDS ORDERED: DEXTROSE 50%-WATER 25 GM/50 ML DISP.SYRIN IV PRN ×2 (03:09)
[2016-10-04] MEDS ORDERED: DEXTROSE 40% GEL 15 GM TUBE PO PRN ×2 (03:09)
[2016-10-04] MEDS ORDERED: OXYCODONE HCL IR 5 MG TABLET PO PRN (03:16)
[2016-10-04 06:34] LABS: ABSOLUTE BASOPHILS # (AUTO) 0.1 10^3/uL (0.0-0.2); ABSOLUTE EOSINOPHILS # (AUTO) 0.6 10^3/uL (0.0-0.6); ABSOLUTE LYMPHOCYTES (AUTO) 1.4 10^3/uL (0.5-4.7); ABSOLUTE MONOCYTES (AUTO) 1.1 10^3/uL (0.1-1.4); ABSOLUTE NEUT (AUTO) 4.4 10^3/uL (1.7-8.2); BASOPHILS % (AUTO) 0.8 % (0-2); HEMATOCRIT 28.5 % (36.0-47.0); HEMOGLOBIN 9.1 g/dL (12.0-15.5); HGB HCT DIFFERENCE -1.2; LYMPHOCYTES % (AUTO) 18.4 % (13-45); MEAN CORPUSCULAR HEMOGLOBIN 28.5 pg (27.0-33.4); MEAN CORPUSCULAR HGB CONC 31.8 g/dL (32.0-36.0); MEAN CORPUSCULAR VOLUME 90 fl (80-97); MONOCYTES % (AUTO) 14.8 % (3-13); RED BLOOD COUNT 3.19 10^6/uL (3.72-5.28); WHITE BLOOD COUNT 7.5 10^3/uL (4.0-10.5)
[2016-10-04 06:47] LABS: ANION GAP 9 (5-19); BLOOD UREA NITROGEN 11 mg/dL (7-20); CALCIUM 8.8 mg/dL (8.4-10.2); CARBON DIOXIDE 27 mmol/L (22-30); CHLORIDE 105 mmol/L (98-107); CREATININE RESULT 0.63 mg/dL (0.52-1.25); GLUCOSE 94 mg/dL (75-110); POTASSIUM 3.9 mmol/L (3.6-5.0); SODIUM 140.8 mmol/L (137-145)
[2016-10-04 07:28] LABS: ERYTHROCYTE SEDIMENTATION RATE 111 mm/hr (0-30)
[2016-10-04 08:20] VITALS: BP 120/61
--- NOTE | 2016-10-04 08:22 | PDOC H&P ---
History of Present Illness Admission Date/PCP: 10/04/16 03:08 JACKSON MCGRATH MD History of Present Illness: VERITO ARCHIBALD is a 66 year old female approximately 6 days status post right knee arthroplasty. Presented to emergency room with concerns of infection. The patient was admitted for observation. Past Medical History Cardiac Medical History: Reports: Coronary Artery Disease, Hyperlipidema, Hypertension Denies: Atrial Fibrillation, Congestive Heart Failure, Myocardial Infarction , Peripheral Vascular Disease, Pulmonary Embolism, Heart Murmur Pulmonary Medical History: Reports: Pneumonia - 2009, Sleep Apnea Denies: Asthma, Bronchitis, Chronic Obstructive Pulmonary Disease (COPD), Respiratory Failure, Tuberculosis Neurological Medical History: Denies: Seizures Endocrine Medical History: Reports: Hypothyroidism Denies: Hyperthyroidism Renal/ Medical History: Denies: End Stage Renal Disease Malignancy Medical History: Denies: Breast Cancer, Cervical Cancer, Leukemia, Lung Cancer, Ovarian Cancer GI Medical History: Reports: Gastroesophageal Reflux Disease, Hiatal Hernia Denies: Crohn's Disease Musculoskeltal Medical History: Reports: Arthritis Denies: Fibromyalgia Psychiatric Medical History: Hematology: Denies: Anemia, Hemophilia, Sickle Cell Disease Infectious Medical History: Denies: HIV Past Surgical History Past Surgical History: Reports: Hysterectomy, Orthopedic Surgery - Left knee Denies: Amputation, Appendectomy, Section, Cholecystectomy, Colostomy, Coronary Artery Bypass Graft, Gastric Bypass Surgery, Herniorrhaphy, Mastectomy, Pacemaker, Tonsillectomy, Tubal Ligation Social History Smoking Status: Never Smoker Frequency of Alcohol Use: None Hx Recreational Drug Use: No Drugs: None Hx Prescription Drug Abuse: No - Advance Directive Resuscitation Status: Full Code Family History Family History: Reviewed & Not Pertinent Parental Family History Reviewed: No Children Family History Reviewed: No Sibling(s) Family History Reviewed.: No Medication/Allergy Home Medications: Telmisartan [Micardis 80 mg Tablet] 80 mg PO DAILY 05/06/11 Amlodipine Besylate [Norvasc 5 mg Tablet] 5 mg PO Q12 #0 tablet 10/03/15 Metoprolol Tartrate [Lopressor 50 mg Tablet] 50 mg PO Q12H #0 tablet 10/03/15 Nitroglycerin [Nitro-Dur 5 mg (0.2 mg/Hr) Transdermal Patch] 1 each TD DAILY # 0 patch.td24 10/03/15 Ascorbic Acid [Vitamin C 500 mg Tablet] 500 mg PO DAILY 07/22/16 Aspirin [Ecotrin 81 mg EC Tablet] 81 mg PO DAILY 07/22/16 Calcium Carbonate/Vitamin D3 [Calcium 500 + Vit D Caplet] 1 tab PO BID 07/22/16 Cetirizine HCl [Zyrtec 10 mg Tablet] 1 tab PO PRN PRN 07/22/16 Esomeprazole Mag Trihydrate [Nexium] 40 mg PO QAM 07/22/16 Multivitamin [One-A-Day Essential] 1 tab PO BID 07/22/16 Dexter-3 Fatty Acids/Fish Oil [Fish Oil 1,000 mg Capsule] 2 tab PO DAILY Pravastatin Sodium 20 mg PO DAILY 07/22/16 Pravastatin Sodium 10 mg PO QAM 09/26/16 Oxycodone HCl [Oxy-Ir 5 mg Tablet] 5 mg PO Q6HP PRN #0 tablet 09/30/16 Rivaroxaban [Xarelto 10 mg Tablet] 10 mg PO QHS #0 tablet 09/30/16 Allergies/Adverse Reactions: hydrocodone bitartrate [From Vicodin] Allergy (Severe, Verified 08/29/16 07:13) swelling of lips, blisters lidocaine [Lidocaine] Allergy (Severe, Verified 08/29/16 07:13) CHANGES SKIN COLOR morphine Allergy (Intermediate, Verified 09/29/16 13:55) Pruritis acetaminophen [From Percocet] Adverse Reaction (Mild, Verified 09/29/16 13:55) Constipation oxycodone [From Percocet] Adverse Reaction (Mild, Verified 09/29/16 13:55) Constipation Review of Systems All systems: reviewed and no additional remarkable complaints except as stated - Denies fever sweats chills or other other constitutional symptoms Physical Exam Vital Signs: Temp Pulse Resp BP Pulse Ox 36.6 C 85 18 140/79 H 97 10/04/16 08:00 10/04/16 08:00 10/04/16 08:00 10/04/16 08:00 10/04/16 08:00 Intake & Output 10/03/16 10/04/16 10/05/16 06:59 06:59 06:59 Intake Total 0 Balance 0 Weight 106.9 kg General appearance: PRESENT: no acute distress Head exam: PRESENT: normocephalic Eye exam: PRESENT: EOMI Respiratory exam: PRESENT: unlabored Cardiovascular exam: PRESENT: RRR Pulses: PRESENT: +1 pedal pulses bilateral Vascular exam: PRESENT: normal capillary refill GI/Abdominal exam: PRESENT: soft Rectal exam: PRESENT: deferred Extremities exam: PRESENT: other - Right knee picot dressing is taken down. At this point this was the original postoperative dressing and nobody has actually looked at the incision at until this point. Is clean and dry. It is replaced with an OpSite. There is minimal surrounding induration. Neurological exam: PRESENT: alert, awake, oriented to person, oriented to place , oriented to time, oriented to situation. ABSENT: motor sensory deficit Psychiatric exam: PRESENT: appropriate affect, normal mood. ABSENT: homicidal ideation, suicidal ideation Skin exam: PRESENT: dry, intact, warm. ABSENT: cyanosis, rash Results Laboratory Results: 10/04/16 06:02 10/04/16 06:02 10/04/16 10/04/16 06:02 06:02 WBC 7.5 RBC 3.19 L Hgb 9.1 L Hct 28.5 L MCV 90 MCH 28.5 MCHC 31.8 L RDW 14.0 Plt Count 208 Seg Neutrophils % 58.0 Lymphocytes % 18.4 Monocytes % 14.8 H Eosinophils % 8.0 H Basophils % 0.8 Absolute Neutrophils 4.4 Absolute Lymphocytes 1.4 Absolute Monocytes 1.1 Absolute Eosinophils 0.6 Absolute Basophils 0.1 Sodium 140.8 Potassium 3.9 Chloride 105 Carbon Dioxide 27 Anion Gap 9 BUN 11 Creatinine 0.63 Est GFR ( Amer) > 60 Est GFR (Non-Af Amer) > 60 Glucose 94 Calcium 8.8 Status: Imported from PACS Assessment & Plan - Diagnosis (1) Knee joint replacement status Is this a current diagnosis for this admission?: YesPlan: 66-year-old black female postop day 6 from right knee arthroplasty. My clinical intuition regarding the wound is that this is benign. I do not see any concern with drainage, or erythema and induration out of proportion to what I we have expected for postop day 6 wound. The only concern I have at this point sedimentation rate is 113. - Time Time Spent: 50 to 70 Minutes Anticipated discharge: Home with Homehealth Within: within 24 hours
--- NOTE | 2016-10-10 12:11 | PDOC DISCHARGE SUMMARY ---
General - Admit/Disc Date/PCP Admission Date/Primary Care Provider: 10/04/16 03:08 JACKSON MCGRATH MD Discharge Date: 10/06/16 - Discharge Diagnosis (1) Knee joint replacement status Is this a current diagnosis for this admission?: Yes - Additional Information Resuscitation Status: Full Code Discharge Diet: As Tolerated, Regular Discharge Activity: Activity As Tolerated, Balance Activity w/Rest, No tub bath History of Present Illness History of Present Illness: Patient is a-year-old black female progressive right knee pain and functional disability who is admitted for right knee arthroplasty. Hospital Course Hospital Course: Is admitted to the operating room where she undergoes uncomplicated right knee arthroplasty. She is returned to the floor in satisfactory position. She seen by physical therapy begun on range of motion, strengthening, weightbearing as tolerated patient program. She makes excellent progress in this regard. Physical Exam Vital Signs: Temp Pulse Resp BP Pulse Ox 37.1 C 83 18 120/61 100 10/04/16 08:00 10/04/16 08:00 10/04/16 08:00 10/04/16 08:00 10/04/16 08:00 General appearance: PRESENT: mild distress Head exam: PRESENT: normocephalic Eye exam: PRESENT: EOMI Respiratory exam: PRESENT: unlabored Cardiovascular exam: PRESENT: RRR Pulses: PRESENT: +1 pedal pulses bilateral Vascular exam: PRESENT: normal capillary refill GI/Abdominal exam: PRESENT: soft Rectal exam: PRESENT: deferred Extremities exam: PRESENT: other - Right knee picot dressing is clean dry and intact. There is minor pedal edema. Distal neurovascular examination is intact. Neurological exam: PRESENT: alert, awake, oriented to person, oriented to place , oriented to time, oriented to situation. ABSENT: motor sensory deficit Psychiatric exam: PRESENT: appropriate affect, normal mood. ABSENT: homicidal ideation, suicidal ideation Skin exam: PRESENT: dry, intact, warm. ABSENT: cyanosis, rash Results Laboratory Results: 10/04/16 06:02 10/04/16 06:02 Status: Imported from PACS Plan Discharge Plan: Discharge home with home health nursing, home health physical therapy, wheeled walker, bedside commode. Visiting nurse service can change the right knee picot dressing and replaced with an OpSite on postop day 7. Patient will follow up with Dr. [facility] for surgery in 2 weeks for staple removal.
== END 2016-10-04 08:40 | disposition home or self-care (01) ==
LOC: ER 00:24 → UNDOADMOB 01:48 → EH 01:48 → 4S 02:53 → EH 03:08
PROVIDERS: ADMIT Orthopaedic Surgery; ATTEND Orthopaedic Surgery
DX: Z96.651 Presence of right artificial knee joint (principal); Z47.1 Aftercare following joint replacement surgery; I25.10 Atherosclerotic heart disease of native coronary artery without angina pectoris; I10 Essential (primary) hypertension; Z79.899 Other long term (current) drug therapy; Z79.82 Long term (current) use of aspirin
CPT/HCPCS: 99284; 96365; 36415; 85025; 85652; 80048; G0378; J0696; J3370

== ENCOUNTER 2017-02-18 01:24 | Emergency (ER) | payer MEDICARE, OTHER ==
[2017-02-18 01:39] VITALS: BP 151/91
[2017-02-18] MEDS ORDERED: OXYMETAZOLINE HCL 0.05% NASAL SPRAY 15 ML BOTTLE NASL ONE (02:32)
--- NOTE | 2017-02-18 02:47 | ER Document Report ---
ED ENT - General Chief Complaint: Nose Bleed Stated Complaint: NOSE BLEED Time Seen by Provider: 02/18/17 02:04 Notes: Patient is a 66-year-old female who presents with intermittent bleeding from the right nostril. Patient states she has had 3 total episodes today which she had a small amount of bleeding from the right nostril that was able be controlled using cold water. She denies any bleeding at time of presentation. She denies any additional symptoms including lightheadedness, syncope, or orthostasis. No history of prior nosebleeds in the past. She does take an aspirin but no additional anticoagulation. She does admit to picking the nostril. She has not seen her primary care doctor regarding today's concerns. Nothing improves or worsens her symptoms. She denies any trauma to the nose. TRAVEL OUTSIDE OF THE [place] IN LAST 30 DAYS: No - Related Data Allergies/Adverse Reactions: hydrocodone bitartrate [From Vicodin] Allergy (Severe, Verified 08/29/16 07:13) swelling of lips, blisters lidocaine [Lidocaine] Allergy (Severe, Verified 08/29/16 07:13) CHANGES SKIN COLOR morphine Allergy (Intermediate, Verified 09/29/16 13:55) Pruritis acetaminophen [From Percocet] Adverse Reaction (Mild, Verified 09/29/16 13:55) Constipation oxycodone [From Percocet] Adverse Reaction (Mild, Verified 09/29/16 13:55) Constipation Past Medical History - General Information source: Patient - Social History Smoking Status: Never Smoker Chew tobacco use (# tins/day): No Frequency of alcohol use: None Drug Abuse: None Family History: Reviewed & Not Pertinent Patient has suicidal ideation: No Patient has homicidal ideation: No - Past Medical History Cardiac Medical History: Reports: Hx Coronary Artery Disease, Hx Hypercholesterolemia, Hx Hypertension Denies: Hx Atrial Fibrillation, Hx Congestive Heart Failure, Hx Heart Attack , Hx Peripheral Vascular Disease, Hx Pulmonary Embolism, Hx Heart Murmur Pulmonary Medical History: Reports: Hx Pneumonia - 2009, Hx Sleep Apnea Denies: Hx Asthma, Hx Bronchitis, Hx COPD, Hx Respiratory Failure, Hx Tuberculosis Neurological Medical History: Denies: Hx Cerebrovascular Accident, Hx Seizures Endocrine Medical History: Reports: Hx Hypothyroidism. Denies: Hx Graves' Disease, Hx Hyperthyroidism Renal/ Medical History: Denies: Hx End Stage Renal Disease, Hx Kidney Stones, Hx Ovarian Cysts, Hx Peritoneal Dialysis, Hx Pelvic Inflammatory Disease Malignancy Medical History: Denies: Hx Breast Cancer, Hx Cervical Cancer, Hx Leukemia, Hx Lung Cancer, Hx Ovarian Cancer GI Medical History: Reports: Hx Gastroesophageal Reflux Disease, Hx Hiatal Hernia. Denies: Hx Crohn's Disease, Hx Irritable Bowel, Hx Liver Failure, Hx Pancreatitis, Hx Ulcer Musculoskeltal Medical History: Reports Hx Arthritis, Denies Hx Fibromyalgia, Denies Hx Muscular Dystrophy Psychiatric Medical History: Traumatic Medical History: Denies: Hx Fractures Infectious Medical History: Denies: Hx HIV Past Surgical History: Reports: Hx Abdominal Surgery, Hx Hysterectomy, Hx Orthopedic Surgery - Left knee. Denies: Hx Appendectomy, Hx Bowel Surgery, Hx Section, Hx Cholecystectomy, Hx Colostomy, Hx Coronary Artery Bypass Graft, Hx Gastric Bypass Surgery, Hx Herniorrhaphy, Hx Mastectomy, Hx Pacemaker , Hx Tonsillectomy, Hx Tubal Ligation - Immunizations Hx Diphtheria, Pertussis, Tetanus Vaccination: No Hx Pneumococcal Vaccination: 03/23/12 Review of Systems - Review of Systems Notes: Constitutional: Negative for fever. HENT: Negative for sore throat. Positive for nosebleed Eyes: Negative for visual changes. Cardiovascular: Negative for chest pain. Respiratory: Negative for shortness of breath. Gastrointestinal: Negative for abdominal pain, vomiting or diarrhea. Genitourinary: Negative for dysuria. Musculoskeletal: Negative for back pain. Skin: Negative for rash. Neurological: Negative for headaches, weakness or numbness. 10 point ROS negative except as marked above and in HPI. Physical Exam - Vital signs Vitals: Temp Pulse Resp BP Pulse Ox 98 F 64 22 H 151/91 H 95 02/18/17 01:27 02/18/17 01:27 02/18/17 01:27 02/18/17 01:27 02/18/17 01:27 Interpretation: Hypertensive Notes: PHYSICAL EXAMINATION: GENERAL: Well-appearing, well-nourished and in no acute distress. HEAD: Atraumatic, normocephalic. EYES: Pupils equal round and reactive to light, extraocular movements intact, sclera anicteric, conjunctiva are normal. ENT: nares patent, there are mild excoriations along the anterior septum of the right nostril. No active bleeding. NECK: Normal range of motion, supple without lymphadenopathy LUNGS: Breath sounds clear to auscultation bilaterally and equal. No wheezes rales or rhonchi. HEART: Regular rate and rhythm without murmurs ABDOMEN: Soft, nontender, normoactive bowel sounds. No guarding, no rebound. No masses appreciated. EXTREMITIES: Normal range of motion, no pitting or edema. No cyanosis. NEUROLOGICAL: No focal neurological deficits. Moves all extremities spontaneously and on command. PSYCH: Normal mood, normal affect. SKIN: Warm, Dry, normal turgor, no rashes or lesions noted. Course - Re-evaluation Re-evalutation: 02/18/17 02:33 Patient presents with an intermittent right nostril bleed that is not present at time of presentation. Patient has scant excoriations on the anterior septal wall but no evidence of active bleeding. She takes only an aspirin a day. Her vitals are within normal limits. She denies any additional acute complaints. I do not see an indication to check a CBC as she reports her bleeding at home was very mild amount. I have encouraged her to continue to apply Vaseline to the inside of the nostril to moisturize the area and have discouraged any further instrumentation or picking of the nostril. At this time will discharge with return precautions and follow-up recommendations. Verbal discharge instructions given a the bedside and opportunity for questions given. Medication warnings reviewed. Patient is in agreement with this plan and has verbalized understanding of return precautions and the need for primary care follow-up in the next 24-72 hours. - Vital Signs Vital signs: Temp Pulse Resp BP Pulse Ox 98 F 64 22 H 151/91 H 95 02/18/17 01:27 02/18/17 01:27 02/18/17 01:27 02/18/17 01:27 02/18/17 01:27 Discharge - Discharge Clinical Impression: Nosebleed Condition: Good Disposition: HOME, SELF-CARE Additional Instructions: You were seen today for a nosebleed. If this restarts please apply direct pressure to the area for 15 minutes without releasing pressure. You can use 4- 5 sprays the Afrin (oxymetazoline) spray that was given to you here in the emergency room into the affected side prior to applying the pressure. You need to apply vasaline or a similar product along the inside of the side of the nose that is bleeding twice daily to help heal the inside of your nose. Please return to emergency department if these measures do not control the bleeding. Please also return if you pass out, have significant pain of the nose or face, or any other symptoms that are concerning to you. Your primary care doctor regarding today's visit. Referrals: JACKSON MCGRATH MD [Primary Care Provider] - Follow up as needed
== END 2017-02-18 02:42 | disposition home or self-care (01) ==
LOC: ER 01:24
DX: R04.0 Epistaxis (principal)
CPT/HCPCS: 99283; J3490

== ENCOUNTER 2017-11-23 12:24 | Emergency (ER) | payer MEDICARE, OTHER ==
[2017-11-23 12:38] VITALS: BP 138/72
--- NOTE | 2017-11-23 12:47 | ER Document Report ---
ED Fall - General Chief Complaint: Fall Stated Complaint: FALL/CHECK KNEES Time Seen by Provider: 11/23/17 12:39 Mode of Arrival: Ambulatory Information source: Patient Notes: 67-year-old female presented ED for complaint of falling around limb 30 today. She states she was concerned about her bilateral knee replacements. She states she is not having any pain or discomfort at this time. She states there is swelling to the right knee but it is not painful. Patient is alert oriented respirations regular and unlabored speaking in full sentences walk with a even steady gait. Patient does have surgical incision scars to the right and left knee. She states the left knee replacement was done in 2016 in the right in 2017. TRAVEL OUTSIDE OF THE [place] IN LAST 30 DAYS: No - HPI Occurred: This morning Where: Home, Outdoors Context: Tripped Associated symptoms: None Location of injury/pain: Knee Quality of pain: No pain Severity: None Pain Level: Denies - Related data Allergies/Adverse Reactions: hydrocodone bitartrate [From Vicodin] Allergy (Severe, Verified 11/23/17 12:27) swelling of lips, blisters lidocaine [Lidocaine] Allergy (Severe, Verified 11/23/17 12:27) CHANGES SKIN COLOR morphine Allergy (Intermediate, Verified 11/23/17 12:27) Pruritis acetaminophen [From Percocet] Adverse Reaction (Mild, Verified 11/23/17 12:27) Constipation oxycodone [From Percocet] Adverse Reaction (Mild, Verified 11/23/17 12:27) Constipation Past Medical History - General Information source: Patient - Social History Smoking Status: Unknown if Ever Smoked Frequency of alcohol use: None Drug Abuse: None Lives with: Family Family History: Reviewed & Not Pertinent Patient has suicidal ideation: No Patient has homicidal ideation: No - Past Medical History Cardiac Medical History: Reports: Hx Coronary Artery Disease, Hx Hypercholesterolemia, Hx Hypertension Pulmonary Medical History: Reports: Hx Pneumonia - 2009, Hx Sleep Apnea EENT Medical History: Reports: None Neurological Medical History: Reports: None Endocrine Medical History: Reports: Hx Hypothyroidism Renal/ Medical History: Reports: None Malignancy Medical History: Reports: None GI Medical History: Reports: Hx Gastroesophageal Reflux Disease, Hx Hiatal Hernia Musculoskeletal Medical History: Reports Hx Arthritis, Reports Hx Musculoskeletal Deformity, Reports Hx Musculoskeletal Trauma Skin Medical History: Reports None Psychiatric Medical History: Reports: None Traumatic Medical History: Reports: Hx Fractures Infectious Medical History: Reports: None Past Surgical History: Reports: Hx Abdominal Surgery, Hx Hysterectomy, Hx Orthopedic Surgery - Left knee - Immunizations Hx Diphtheria, Pertussis, Tetanus Vaccination: No Hx Pneumococcal Vaccination: 03/23/12 Review of Systems - Review of Systems Constitutional: No symptoms reported EENT: No symptoms reported Cardiovascular: No symptoms reported Respiratory: No symptoms reported Gastrointestinal: No symptoms reported Genitourinary: No symptoms reported Female Genitourinary: No symptoms reported Musculoskeletal: Joint swelling. denies: Joint pain, Muscle pain Skin: No symptoms reported Hematologic/Lymphatic: No symptoms reported Neurological/Psychological: No symptoms reported -: Yes All other systems reviewed and negative Physical Exam - Vital signs Vitals: Temp Pulse Resp BP Pulse Ox 97.7 F 51 L 18 138/72 H 94 11/23/17 12:37 11/23/17 12:37 11/23/17 12:37 11/23/17 12:37 11/23/17 12:37 Interpretation: Normal - General General appearance: Appears well, Alert - HEENT Head: Normocephalic, Atraumatic Eyes: Normal Pupils: PERRL - Respiratory Respiratory status: No respiratory distress Chest status: Nontender Breath sounds: Normal Chest palpation: Normal - Cardiovascular Rhythm: Regular Heart sounds: Normal auscultation Murmur: No - Abdominal Inspection: Normal Distension: No distension Bowel sounds: Normal Tenderness: Nontender Organomegaly: No organomegaly - Back Back: Normal, Nontender - Extremities General upper extremity: Normal inspection, Nontender, Normal color, Normal ROM , Normal temperature General lower extremity: Nontender, Normal color, Normal ROM, Normal temperature , Normal weight bearing. No: Anu's sign Knee: Other - Mild swelling to the right knee no swelling to the left no pain to either - Neurological Neuro grossly intact: Yes Cognition: Normal Orientation: AAOx4 Niecy Coma Scale Eye Opening: Spontaneous Niecy Coma Scale Verbal: Oriented Niecy Coma Scale Motor: Obeys Commands Niecy Coma Scale Total: 15 Speech: Normal Motor strength normal: LUE, RUE, LLE, RLE Sensory: Normal - Psychological Associated symptoms: Normal affect, Normal mood - Skin Skin Temperature: Warm Skin Moisture: Dry Skin Color: Normal Course - Re-evaluation Re-evalutation: 11/23/17 21:31 Patient was having no pain to the knee. Patient is able to walk the same as she usually does. There was mild bruising to the knee. Patient was instructed to follow-up with her orthopedic by telephone tomorrow to schedule a follow-up appointment. Patient was discharged home with instructions for ibuprofen ice and elevation for the swelling. - Vital Signs Vital signs: Temp Pulse Resp BP Pulse Ox 97.7 F 51 L 18 138/72 H 94 11/23/17 12:37 11/23/17 12:37 11/23/17 12:37 11/23/17 12:37 11/23/17 12:37 Discharge - Discharge Clinical Impression: Contusion of right knee Qualifiers: Encounter type: initial encounter Qualified Code(s): S80.01XA - Contusion of right knee, initial encounter Fall Qualifiers: Encounter type: initial encounter Qualified Code(s): W19.XXXA - Unspecified fall, initial encounter Condition: Stable Disposition: HOME, SELF-CARE Additional Instructions: CONTUSION: Your injury has resulted in a contusion -- a crushing of the deep tissues. No injury to important structures was detected during the physician's exam. Contusions vary in the amount of pain they cause, and in the length of time required for healing. Typically, the area will become bruised, and will remain painful to touch for two or three weeks. However, most patients are back to working and playing within a few days. After the initial period of rest and cold-packs, your symptoms (together with the doctor's recommendations) will determine how rapidly you can get back to full activity. Usually this means "do what feels okay, but don't do things that hurt." If re-examination was recommended, it's important to follow up as instructed. Call the doctor or return any time if pain increases, if swelling becomes severe, if you develop numbness or weakness in an injured extremity, or if any other alarming symptoms occur. USE OF TYLENOL (ACETAMINOPHEN): Acetaminophen may be taken for pain relief or fever control. It's much safer than aspirin, offering a wider range of "safe" dosages. It is safe during . Some brand names are Tylenol, Panadol, Datril, Anacin 3, Tempra, and Liquiprin. Acetaminophen can be repeated every four hours. The following are maximum recommended dosages: WEIGHT Dose Drops Elixir Chewable( 80mg) (LBS.) drprs=droppers tsp=teaspoon 6 40 mg 0.4 ml (1/2) 6-11 80 mg 0.8 ml (full) tsp 1 tab 12-16 120 mg 1 1/2 drprs 3/4 tsp 1 1/2 tabs 17-23 160 mg 2 drprs 1 tsp 2 tabs 24-30 240 mg 3 drprs 1 1/2 tsp 3 tabs 30-35 320 mg 2 tsp 4 tabs 36-41 360 mg 2 1/4 tsp 4 1/2 tabs 42-47 400 mg 2 1/2 tsp 5 tabs 48-53 480 mg 3 tsp 6 tabs 54-59 520 mg 3 1/4 tsp 6 1/2 tabs 60-64 560 mg 3 1/2 tsp 7 tabs 65-70 600 mg 3 3/4 tsp 7 1/2 tabs 71-76 640 mg 4 tsp 8 tabs 77-82 720 mg 4 1/2 tsp 9 tabs 83-88 800 mg 5 tsp 10 tabs >89 pounds or adults 650 mg to 900 mg Acetaminophen can be repeated every four hours. Maximum dose not to exceed 4000 mg a day. These maximum recommended dosages are slightly higher than the dosages written on the product container, but these dosages are very safe and below the toxic dosage for acetaminophen. ICE PACKS: Apply ice packs frequently against the painful area. Many different schedules are recommended, such as "20 minutes on, 20 minutes off" or "one hour ice, two hours rest." If you need to work, you may need to go longer between ice treatments. You should plan to have the area ice packed AT LEAST one fourth of the time. The ice should be applied over the wrap, tape, or splint, or over a layer of cloth -- not directly against the skin. Some ice bags have a built-in cloth and can be put directly on the skin. FOLLOW-UP CARE: If you have been referred to a physician for follow-up care, call the physician s office for an appointment as you were instructed or within the next two days. If you experience worsening or a significant change in your symptoms, notify the physician immediately or return to the Emergency Department at any time for re-evaluation. Forms: Elevated Blood Pressure Referrals: JACKSON MCGRATH MD [Primary Care Provider] - Follow up as needed STUART HERNANDEZ MD [ACTIVE STAFF] - Follow up as needed
== END 2017-11-23 12:51 | disposition home or self-care (01) ==
LOC: ER 12:24
DX: S80.01XA Contusion of right knee, initial encounter (principal); W01.0XXA Fall on same level from slipping, tripping and stumbling without subsequent striking against object, initial encounter; Y93.9 Activity, unspecified; Y92.007 Garden or yard of unspecified non-institutional (private) residence as the place of occurrence of the external cause
CPT/HCPCS: 99283

== ENCOUNTER 2018-05-09 00:43 | Emergency (ER) | payer MEDICARE, OTHER ==
[2018-05-09] MEDS ORDERED: IBUPROFEN 800 MG TABLET PO ONE ×2 (01:03→02:59)
[2018-05-09] MEDS ORDERED: ONDANSETRON HCL INJ/PF 4 MG/2 ML SDV IV ONE (01:03)
[2018-05-09] MEDS ORDERED: NORMAL SALINE 1000 ML 1,000 ML IV ONE (01:03)
[2018-05-09] MEDS ORDERED: KETOROLAC TROMETHAMINE INJ/PF 30 MG/1 ML SDV IV ONE (01:56)
[2018-05-09 01:59] LABS: ABSOLUTE MONOCYTES (AUTO) 0.6 10^3/uL (0.1-1.4); ABSOLUTE NEUT (AUTO) 10.4 10^3/uL (1.7-8.2); BASOPHILS % (AUTO) 0.1 % (0-2); EOSINOPHILS % (AUTO) 0.3 % (0-6); HEMATOCRIT 41.8 % (36.0-47.0); HEMOGLOBIN 13.6 g/dL (12.0-15.5); LYMPHOCYTES % (AUTO) 8.1 % (13-45); MEAN CORPUSCULAR HEMOGLOBIN 29.1 pg (27.0-33.4); MEAN CORPUSCULAR HGB CONC 32.5 g/dL (32.0-36.0); MEAN CORPUSCULAR VOLUME 90 fl (80-97); MONOCYTES % (AUTO) 4.9 % (3-13); PLATELET COUNT 201 10^3/uL (150-450); RED BLOOD COUNT 4.68 10^6/uL (3.72-5.28); RED CELL DISTRIBUTION WIDTH 14.4 % (11.5-14.0); SEGMENTED NEUTROPHILS % (AUTO) 86.6 % (42-78); TOTAL CELLS COUNTED % (AUTO) 100 %
[2018-05-09 02:33] LABS: A TYPE INFLUENZA AG NEGATIVE (NEGATIVE); APPEARANCE,URINE CLEAR; B INFLUENZA AG NEGATIVE (NEGATIVE); BILIRUBIN,URINE NEGATIVE (NEGATIVE); COLOR,URINE STRAW; GLUCOSE, URINE NEGATIVE (NEGATIVE); KETONES,URINE NEGATIVE (NEGATIVE); LEUKOCYTE ESTERASE,URINE NEGATIVE (NEGATIVE); NITRITE,URINE NEGATIVE (NEGATIVE); PROTEIN,URINE NEGATIVE (NEGATIVE); URINE SPECIFIC GRAVITY 1.011; UROBILINOGEN,URINE NEGATIVE mg/dL (<2.0)
[2018-05-09 02:41] LABS: ALANINE AMINOTRANSFERASE 7 U/L (9-52); ALBUMIN 4.1 g/dL (3.5-5.0); ALKALINE PHOSPHATASE 83 U/L (38-126); ANION GAP 11 (5-19); ASPARTATE AMINO TRANSFERASE 15 U/L (14-36); BILIRUBIN,DIRECT 0.2 mg/dL (0.0-0.4); BILIRUBIN,TOTAL 0.6 mg/dL (0.2-1.3); BLOOD UREA NITROGEN 9 mg/dL (7-20); CALCIUM 8.9 mg/dL (8.4-10.2); CARBON DIOXIDE 26 mmol/L (22-30); CHLORIDE 110 mmol/L (98-107); GLUCOSE 125 mg/dL (75-110); LIPASE 111.2 U/L (23-300); POTASSIUM 3.9 mmol/L (3.6-5.0); SODIUM 146.8 mmol/L (137-145); TOTAL PROTEIN 7.4 g/dL (6.3-8.2)
--- NOTE | 2018-05-09 02:57 | RADIOLOGY REPORT (SQ) ---
EXAM DESCRIPTION: XR CHEST 1 VIEW COMPLETED DATE/TME: 05/09/2018 01:12 CLINICAL HISTORY: 67 years Female, fever, cough COMPARISON: October 06, 2015. NUMBER OF VIEWS/TECHNIQUE: 1/AP FINDINGS: Mild mixed interstitial and airspace opacity, normal cardiac silhouette, and intact bony thorax. IMPRESSION: Mild mixed interstitial and airpace opacities. Differential diagnosis includes pulmonary edema, multifocal pneumonia, and chronic interstitial lung disease.
[2018-05-09] MEDS ORDERED: DOXYCYCLINE HYCLATE 100 MG TABLET PO ONE (03:11)
[2018-05-09 03:36] VITALS: BP 135/88
--- NOTE | 2018-05-09 03:49 | ER Document Report ---
ED General - General Chief Complaint: Vomiting Stated Complaint: VOMITING Time Seen by Provider: 05/09/18 01:01 Primary Care Provider: JACKSON MCGARTH MD [Primary Care Provider] - Follow up as needed Notes: Patient is a 67-year-old female presents to the emergency department for generalized cough, congestion for the last 24 hours. Patient states around 2200 hrs. this evening she felt very cold. States she vomited x1 and called her son. Son is in the room with patient states patient vomited another time in route to the hospital. Patient is denying any abdominal pain, nausea feeling, chest pain, shortness of breath, dizziness, lightheadedness. Patient's only complaint is "I feel so cold." Patient was noted to have a temperature of 103 F in the emergency department. Past medical history: Hypertension, coronary artery disease, hyperlipidemia, GERD, sleep apnea Medications: Metoprolol, amlodipine, pantoprazole, pravastatin, aspirin, nitroglycerin Allergies: Tylenol, Percocet, Vicodin, morphine, Lidoderm patches TRAVEL OUTSIDE OF THE [place] IN LAST 30 DAYS: No - Related Data Allergies/Adverse Reactions: hydrocodone bitartrate [From Vicodin] Allergy (Severe, Verified 11/23/17 12:27) swelling of lips, blisters lidocaine [Lidocaine] Allergy (Severe, Verified 11/23/17 12:27) CHANGES SKIN COLOR morphine Allergy (Intermediate, Verified 11/23/17 12:27) Pruritis acetaminophen [From Percocet] Adverse Reaction (Mild, Verified 11/23/17 12:27) Constipation oxycodone [From Percocet] Adverse Reaction (Mild, Verified 11/23/17 12:27) Constipation Past Medical History - General Information source: Patient, Relative - Social History Smoking Status: Never Smoker Frequency of alcohol use: None Drug Abuse: None Family History: Reviewed & Not Pertinent Patient has suicidal ideation: No Patient has homicidal ideation: No - Past Medical History Cardiac Medical History: Reports: Hx Coronary Artery Disease, Hx Hypercholesterolemia, Hx Hypertension Denies: Hx Atrial Fibrillation, Hx Congestive Heart Failure, Hx Heart Attack, Hx Peripheral Vascular Disease, Hx Pulmonary Embolism, Hx Heart Murmur Pulmonary Medical History: Reports: Hx Pneumonia - 2009, Hx Sleep Apnea Denies: Hx Asthma, Hx Bronchitis, Hx COPD, Hx Respiratory Failure, Hx T uberculosis Neurological Medical History: Denies: Hx Cerebrovascular Accident, Hx Seizures Endocrine Medical History: Reports: Hx Hypothyroidism. Denies: Hx Graves' Disease, Hx Hyperthyroidism Renal/ Medical History: Denies: Hx End Stage Renal Disease, Hx Kidney Stones, Hx Ovarian Cysts, Hx Peritoneal Dialysis, Hx Pelvic Inflammatory Disease Malignancy Medical History: Denies: Hx Breast Cancer, Hx Cervical Cancer, Hx Leukemia, Hx Lung Cancer, Hx Ovarian Cancer GI Medical History: Reports: Hx Gastroesophageal Reflux Disease, Hx Hiatal Hernia. Denies: Hx Crohn's Disease, Hx Irritable Bowel, Hx Liver Failure, Hx Pancreatitis, Hx Ulcer Musculoskeletal Medical History: Reports Hx Arthritis, Denies Hx Fibromyalgia, Denies Hx Muscular Dystrophy, Reports Hx Musculoskeletal Deformity, Reports Hx Musculoskeletal Trauma Psychiatric Medical History: Traumatic Medical History: Reports: Hx Fractures Infectious Medical History: Denies: Hx HIV Past Surgical History: Reports: Hx Abdominal Surgery, Hx Hysterectomy, Hx Orthopedic Surgery - Left knee. Denies: Hx Appendectomy, Hx Bowel Surgery, Hx Section, Hx Cholecystectomy, Hx Colostomy, Hx Coronary Artery Bypass Graft, Hx Gastric Bypass Surgery, Hx Herniorrhaphy, Hx Mastectomy, Hx Pacemaker, Hx Tonsillectomy, Hx Tubal Ligation - Immunizations Hx Diphtheria, Pertussis, Tetanus Vaccination: No Hx Pneumococcal Vaccination: 03/23/12 Review of Systems - Review of Systems Constitutional: See HPI EENT: See HPI Cardiovascular: No symptoms reported Respiratory: See HPI Gastrointestinal: See HPI Genitourinary: No symptoms reported Female Genitourinary: No symptoms reported Musculoskeletal: No symptoms reported Skin: No symptoms reported Hematologic/Lymphatic: No symptoms reported Neurological/Psychological: No symptoms reported Physical Exam - Vital signs Vitals: BP 141/117 H 05/09/18 00:50 - Notes Notes: GENERAL: Alert, interacts well. Tachypneic and tachycardic, patient appears to be very anxious HEAD: Normocephalic, atraumatic. EYES: Pupils equal, round, and reactive to light. Extraocular movements intact. ENT: Oral mucosa moist, tongue midline. Nares patent, TM's intact, nonerythematous, nonbulging bilaterally. Pharynx within normal limits no palatal petechiae noted. NECK: Full range of motion. Supple. Trachea midline. LUNGS: Diminished to auscultation bilateral bases, no discernible wheezes, rales, or rhonchi. HEART: Regular rate and rhythm. No murmur ABDOMEN: Soft, non-tender. Non-distended. Bowel sounds present in all 4 quadrants. EXTREMITIES: Moves all 4 extremities spontaneously. No edema, normal radial and dorsalis pedis pulses bilaterally. No cyanosis. BACK: no cervical, thoracic, lumbar midline tenderness. No saddle anesthesia, normal distal neurovascular exam. NEUROLOGICAL: Alert and oriented x3. Normal speech. cranial nerves II through XII grossly intact PSYCH: Normal affect, normal mood. SKIN: Warm, dry, normal turgor. No rashes or lesions noted. Course - Re-evaluation Re-evalutation: 05/09/18 03:44 Patient's labs do show leukocytosis of 12, no signs of anemia, patient's kidney function is within normal limits. Patient's urine shows no signs of infection her specific gravity is 1.011 with negative ketones she does not appear dehydrated patient's influenza testing was negative. Patient's chest x-ray was read as multifocal pneumonia, and comparing it to previous chest x-rays patient does appear to have a right lower lobe pneumonia infiltrate. We will treat for same. Patient's curb 65 is +1 due to her age. Patient is no longer vomiting in the emergency department. Sitting on the side of the bed in no obvious distress. Patient is requesting discharge at this time. Patient is no longer tachycardic, Tachypneic, patient states "I feel a whole lot better." 05/09/18 03:48 Patient has not been hospitalized in the last 3 months, will treat for community-acquired pneumonia. - Vital Signs Vital signs: Temp Pulse Resp BP Pulse Ox 101.5 F H 29 H 135/88 H 92 05/09/18 03:00 05/09/18 03:19 05/09/18 03:19 05/09/18 03:19 - Laboratory Result Diagrams: 05/09/18 01:45 05/09/18 02:20 Laboratory results interpreted by me: 05/09/18 05/09/18 01:45 02:20 WBC 12.0 H RDW 14.4 H Seg Neutrophils % 86.6 H Lymphocytes % 8.1 L Absolute Neutrophils 10.4 H Sodium 146.8 H Chloride 110 H Glucose 125 H ALT 7 L Discharge - Discharge Clinical Impression: Pneumonia Qualifiers: Pneumonia type: due to unspecified organism Laterality: right Lung location: lower lobe of lung Qualified Code(s): J18.1 - Lobar pneumonia, unspecified organism Vomiting Qualifiers: Vomiting type: unspecified Vomiting Intractability: non-intractable Nausea presence: with nausea Qualified Code(s): R11.2 - Nausea with vomiting, unspecified Fever Qualifiers: Fever type: unspecified Qualified Code(s): R50.9 - Fever, unspecified Condition: Stable Disposition: HOME, SELF-CARE Instructions: Antinausea Medication ([facility]), Intravenous (IV) Fluids ([facility]), Pneumonia ([facility]), Vomiting ([facility]) Additional Instructions: As we discussed you have been seen and treated in the emergency department for pneumonia. Please take antibiotics as prescribed. Please also continue to take Motrin or ibuprofen every 6 hours for your fever. Please stay well-hydrated. These make an appointment with your primary care provider in the next 24-48 hours. Please immediately return to the emergency room should you have any other concerning symptoms. Prescriptions: Doxycycline Hyclate 100 mg PO BID #14 capsule Ibuprofen [Motrin 600 Mg Tablet] 800 mg PO Q6 #20 tablet Ondansetron [Zofran Odt 4 mg Tablet] 1 - 2 tab PO Q4H PRN #15 tab.rapdis PRN Reason: For Nausea/Vomiting Referrals: JACKSON MCGRATH MD [Primary Care Provider] - Follow up as needed
--- NOTE | 2018-05-09 13:06 | EKG REPORT ---
SEVERITY:- ABNORMAL ECG - SINUS TACHYCARDIA PROBABLE LEFT ATRIAL ABNORMALITY LEFT AXIS DEVIATION BORDERLINE T ABNORMALITIES, INFERIOR LEADS : Confirmed by: Gisele Jung MD 09-May-2018 13:05:58
== END 2018-05-09 04:15 | disposition home or self-care (01) ==
LOC: ER 00:43
DX: J18.1 Lobar pneumonia, unspecified organism (principal); R11.2 Nausea with vomiting, unspecified; R50.9 Fever, unspecified; R05 Cough; R09.81 Nasal congestion; R00.0 Tachycardia, unspecified; R06.82 Tachypnea, not elsewhere classified; F41.9 Anxiety disorder, unspecified; I10 Essential (primary) hypertension; I25.10 Atherosclerotic heart disease of native coronary artery without angina pectoris; Z79.899 Other long term (current) drug therapy
CPT/HCPCS: 93005; 99284; 96361; 96374; 96375; 36415; 83605; 83690; 85025; 80053; 81001; 87804; 71045; 93010; A9270 ×2; J1885; J2405; J7030

== ENCOUNTER → 2018-06-24 | Outpatient (CLI) | payer MEDICARE, OTHER ==
--- NOTE | 2018-06-24 20:47 | XCELERA REPORT ---
[address] [address] Transthoracic Echocardiogram Report Name: VERITO ARCHIBALD Age: 68 yrs Gender: Female : 1950 Patient Status: Outpatient Patient Location: [facility] Study Date: 06/24/2018 09:53 AM Height: 64 in Weight: 230 lb BSA: 2.1 m2 Reason For Study: HTN Ordering Physician: JACKSON MCGRATH Performed By: Dulce Cedeño Interpretation Summary No apical 2 chamber view. Min post pericardial effusion Mild nonsetenotic calcific aortic valvular disease with no AR. Mild mitral annular calcification, no MS, no MVP, normal LA size No LV hypertrophy, Normal LVEF 70%, with stage I LV diastolic dysfunction.. Unable to see apical 2 chamber view. unable to r/o segmental disease. R heart is normal, RVSP is 33 mm Hg, mild pulm hypertension. MMode/2D Measurements & Calculations RVDd: 3.5 cm LVIDd: 5.6 cm FS: 43.8 % Ao root diam: 3.0 cm IVSd: 0.67 cm LVIDs: 3.1 cm EDV(Teich): 152.2 ml LVPWd: 0.82 cm ESV(Teich): 39.0 ml Ao root area: 6.9 cm2 EF(Teich): 74.4 % Doppler Measurements & Calculations MV E max tu: MV dec slope: Ao V2 max: LV V1 max P.1 cm/sec 324.5 cm/sec2 130.9 cm/sec 4.5 mmHg MV A max tu: MV dec time: 0.22 sec Ao max P.9 mmHgLV V1 max: 89.3 cm/sec 105.7 cm/sec MV E/A: 0.78 PA V2 max: PI max tu: TR max tu: 75.5 cm/sec 159.4 cm/sec 277.2 cm/sec PA max P.3 mmHgPI max P.2 mmHg TR max PG: PI dec slope: 30.7 mmHg 51.6 cm/sec2 Left Ventricle The left ventricle is normal in size. There is normal left ventricular wall thickness. The left ventricular ejection fraction is normal. Doppler measurements suggest impaired left ventricular relaxation, which is associated with grade I/IV or mild diastolic dysfunction. There is inferior wall mild hypokinesis. There is no thrombus. Right Ventricle The right ventricle is normal in size, thickness and function. Atria The right atrium is normal in size. The left atrial size is normal. The interatrial septum is intact with no evidence for an atrial septal defect. Mitral Valve The mitral valve is normal in structure and function. There is mild mitral annular calcification. There is no mitral valve stenosis. There is no mitral regurgitation noted. Aortic Valve The aortic valve is normal in structure and functions normally. There is no aortic valvular vegetation. There is no aortic valve stenosis. No aortic regurgitation is present. Tricuspid Valve The tricuspid is normal in structure and function. No tricuspid regurgitation. Pulmonic Valve The pulmonic valve is not well visualized. There is a trace or physiologic amount of pulmonic regurgitation. Great Vessels The aortic root is normal size. Effusions There is no pericardial effusion. I WMSI = 1.00 % Normal = 100 Segments Size X - Cannot 1 - Normal 2 - 3 - Akinetic4 - 1-2 small Interpret Hypokinetic Dyskinetic 3-5 moderate 5 - 6-14 large Aneurysmal 15-16 diffuse : JACKSON MCGRATH > Devan Moreno
== END ==
LOC: SP 09:53
PROVIDERS: ATTEND Family Medicine
DX: I10 Essential (primary) hypertension (principal)
CPT/HCPCS: 93306

== ENCOUNTER 2018-07-30 23:11 | Emergency (ER) | payer MEDICARE, OTHER ==
--- NOTE | 2018-07-31 03:08 | ER Document Report ---
ED General - General Chief Complaint: Painful Cough Stated Complaint: COUGHING UP BLOOD Time Seen by Provider: 07/31/18 02:57 Primary Care Provider: JACKSON MCGRATH MD [Primary Care Provider] - Follow up in 3-5 days Notes: Patient is a 68-year-old female that comes emergency part for chief complaint of coughing up blood. She states that she has had this twice today, she states when she lies down, she will start a coughing episode, she will start tasting blood in the back of her throat, and then she will spit out blood. She denies abdominal pain, chest pain, dizziness, difficulty breathing, fever/chills, nosebleed, headache, nausea/vomiting. She is not on a blood thinner. Past medical history of hypertension, TRAVEL OUTSIDE OF THE [place] IN LAST 30 DAYS: No - Related Data Allergies/Adverse Reactions: hydrocodone bitartrate [From Vicodin] Allergy (Severe, Verified 11/23/17 12:27) swelling of lips, blisters lidocaine [Lidocaine] Allergy (Severe, Verified 11/23/17 12:27) CHANGES SKIN COLOR morphine Allergy (Intermediate, Verified 11/23/17 12:27) Pruritis acetaminophen [From Percocet] Adverse Reaction (Mild, Verified 11/23/17 12:27) Constipation oxycodone [From Percocet] Adverse Reaction (Mild, Verified 11/23/17 12:27) Constipation Past Medical History - General Information source: Patient - Social History Smoking Status: Never Smoker Chew tobacco use (# tins/day): No Frequency of alcohol use: None Drug Abuse: None Lives with: Family Family History: Reviewed & Not Pertinent Patient has suicidal ideation: No Patient has homicidal ideation: No - Past Medical History Cardiac Medical History: Reports: Hx Coronary Artery Disease, Hx Hypercholesterolemia, Hx Hypertension Denies: Hx Atrial Fibrillation, Hx Congestive Heart Failure, Hx Heart Attack, Hx Peripheral Vascular Disease, Hx Pulmonary Embolism, Hx Heart Murmur Pulmonary Medical History: Reports: Hx Pneumonia - 2009, Hx Sleep Apnea Denies: Hx Asthma, Hx Bronchitis, Hx COPD, Hx Respiratory Failure, Hx Tuberculosis Neurological Medical History: Denies: Hx Cerebrovascular Accident, Hx Seizures Endocrine Medical History: Reports: Hx Hypothyroidism. Denies: Hx Graves' Disease, Hx Hyperthyroidism Renal/ Medical History: Denies: Hx End Stage Renal Disease, Hx Kidney Stones, Hx Ovarian Cysts, Hx Peritoneal Dialysis, Hx Pelvic Inflammatory Disease Malignancy Medical History: Denies: Hx Breast Cancer, Hx Cervical Cancer, Hx Leukemia, Hx Lung Cancer, Hx Ovarian Cancer GI Medical History: Reports: Hx Gastroesophageal Reflux Disease, Hx Hiatal Hernia. Denies: Hx Crohn's Disease, Hx Irritable Bowel, Hx Liver Failure, Hx Pancreatitis, Hx Ulcer Musculoskeletal Medical History: Reports Hx Arthritis, Denies Hx Fibromyalgia, Denies Hx Muscular Dystrophy, Reports Hx Musculoskeletal Deformity, Reports Hx Musculoskeletal Trauma, Denies Hx Systemic Lupus Erythematosus Psychiatric Medical History: Traumatic Medical History: Reports: Hx Fractures Infectious Medical History: Denies: Hx HIV Past Surgical History: Reports: Hx Abdominal Surgery, Hx Hysterectomy, Hx Orthopedic Surgery - Left knee. Denies: Hx Appendectomy, Hx Bowel Surgery, Hx Section, Hx Cholecystectomy, Hx Colostomy, Hx Coronary Artery Bypass Graft, Hx Gastric Bypass Surgery, Hx Herniorrhaphy, Hx Mastectomy, Hx Pacemaker, Hx Tonsillectomy, Hx Tubal Ligation - Immunizations Hx Diphtheria, Pertussis, Tetanus Vaccination: No Hx Pneumococcal Vaccination: 03/23/12 Review of Systems - Review of Systems Constitutional: No symptoms reported EENT: No symptoms reported Cardiovascular: No symptoms reported Respiratory: See HPI Gastrointestinal: See HPI Genitourinary: No symptoms reported Female Genitourinary: No symptoms reported Musculoskeletal: No symptoms reported Skin: No symptoms reported Hematologic/Lymphatic: No symptoms reported Neurological/Psychological: No symptoms reported Physical Exam - Vital signs Vitals: Temp Pulse Resp BP Pulse Ox 98.6 F 57 L 20 158/86 H 96 07/30/18 23:29 07/30/18 23:29 07/30/18 23:29 07/30/18 23:29 07/30/18 23:29 - Notes Notes: GENERAL: Alert, interacts well. No acute distress. HEAD: Normocephalic, atraumatic. EYES: Pupils equal, round, and reactive to light. Extraocular movements intact. ENT: Oral mucosa moist, tongue midline. Oropharynx unremarkable. Airway patent. Nares patent, no nasal septal hematoma, TM's intact. NECK: Full range of motion. Supple. Trachea midline. LUNGS: Clear to auscultation bilaterally, no wheezes, rales, or rhonchi. No respiratory distress. HEART: Borderline bradycardia, normal rhythm. No murmur ABDOMEN: Soft, non-tender. Non-distended. Bowel sounds present in all 4 quadrants. GENITOURINARY: Deferred EXTREMITIES: Moves all 4 extremities spontaneously. No edema, normal radial and dorsalis pedis pulses bilaterally. No cyanosis. BACK: no cervical, thoracic, lumbar midline tenderness. No saddle anesthesia, normal distal neurovascular exam. NEUROLOGICAL: Alert and oriented x3. Normal speech. . PSYCH: Normal affect, normal mood. SKIN: Warm, dry, normal turgor. No rashes or lesions noted. Course - Re-evaluation Re-evalutation: EKG shows sinus rhythm at a rate of 52. Flipped T wave in lead III; borderline T waves in aVF, V3 and V4, no ST segment changes. Borderline axis. Per previous heart rates bradycardia is normal for patient. However patient has not had any chest pain, she has no shortness of breath. She does report 2 episodes where after lying flat she had a coughing episode and coughed up a small amount of blood. She had this in a bag and I did note a small amount of blood. Significantly less than a handful. Patient is well-appearing. Clear lungs, unremarkable vital signs. CBC unremarkable, chemistry unremarkable, troponin is negative. Chest x-ray with questionable infiltrates versus edema. BNP was added but was not elevated. Discussed with patient, decision was made to perform CTA because of hemoptysis, abnormal chest x-ray. CTA showing mild chronic interstitial changes, no acute findings. Discussed with patient details, decision was made because of her lying flat and having the episodes followed by the blood that she will be placed on antacid therapy, there is no evidence of posterior nasal bleed, work-up is unremarkable. There are some EKG changes but she has had no chest pain or shortness of breath and she remains asymptomatic otherwise. I did have patient lie flat for some time and she had no additional symptoms. Sputum culture was sent from initial episode results. Discussed with Dr. Sapp. Patient will follow close with primary care, she was given strict return precautions. Patient states satisfaction and agreement with plan. - Vital Signs Vital signs: Temp Pulse Resp BP Pulse Ox 98.0 F 58 L 14 158/93 H 96 07/31/18 06:49 07/31/18 06:49 07/31/18 06:49 07/31/18 06:49 07/31/18 06:49 - Laboratory Result Diagrams: 07/31/18 03:15 07/31/18 03:15 Laboratory results interpreted by me: 07/31/18 07/31/18 03:15 03:15 RDW 14.6 H Seg Neutrophils % 40.9 L Lymphocytes % 45.8 H Sodium 147.0 H Chloride 108 H Carbon Dioxide 32 H Discharge - Discharge Clinical Impression: Hemoptysis Condition: Stable Disposition: HOME, SELF-CARE Additional Instructions: Your CAT scan shows some chronic interstitial changes but no new or concerning findings noted. Your remaining laboratory work-up is reassuring. I recommend the Carafate and famotidine as prescribed for the next several days, we have a sputum culture growing in the lab, follow-up with your primary care closely for additional evaluation and management. Return if you worsen including vomiting, difficulty breathing, vomiting blood, coughing up more blood, fever/chills, pain in your chest, or any other concerning or worsening symptoms. Referrals: JACKSON MCGRATH MD [Primary Care Provider] - Follow up in 3-5 days
[2018-07-31 03:24] LABS: ABSOLUTE BASOPHILS # (AUTO) 0.1 10^3/uL (0.0-0.2); ABSOLUTE EOSINOPHILS # (AUTO) 0.1 10^3/uL (0.0-0.6); ABSOLUTE LYMPHOCYTES (AUTO) 2.6 10^3/uL (0.5-4.7); ABSOLUTE MONOCYTES (AUTO) 0.6 10^3/uL (0.1-1.4); ABSOLUTE NEUT (AUTO) 2.3 10^3/uL (1.7-8.2); BASOPHILS % (AUTO) 1.1 % (0-2); EOSINOPHILS % (AUTO) 1.7 % (0-6); HEMATOCRIT 41.1 % (36.0-47.0); HEMOGLOBIN 13.1 g/dL (12.0-15.5); LYMPHOCYTES % (AUTO) 45.8 % (13-45); MEAN CORPUSCULAR HEMOGLOBIN 28.5 pg (27.0-33.4); MEAN CORPUSCULAR VOLUME 89 fl (80-97); MONOCYTES % (AUTO) 10.5 % (3-13); PLATELET COUNT 191 10^3/uL (150-450); RED BLOOD COUNT 4.61 10^6/uL (3.72-5.28); RED CELL DISTRIBUTION WIDTH 14.6 % (11.5-14.0); SEGMENTED NEUTROPHILS % (AUTO) 40.9 % (42-78); TOTAL CELLS COUNTED % (AUTO) 100 %; WHITE BLOOD COUNT 5.6 10^3/uL (4.0-10.5)
[2018-07-31 03:49] LABS: ALANINE AMINOTRANSFERASE 28 U/L (9-52); ALBUMIN 4.3 g/dL (3.5-5.0); ALKALINE PHOSPHATASE 85 U/L (38-126); ANION GAP 7 (5-19); ASPARTATE AMINO TRANSFERASE 19 U/L (14-36); BILIRUBIN,DIRECT 0.2 mg/dL (0.0-0.4); BILIRUBIN,TOTAL 0.7 mg/dL (0.2-1.3); BLOOD UREA NITROGEN 11 mg/dL (7-20); CALCIUM 9.8 mg/dL (8.4-10.2); CARBON DIOXIDE 32 mmol/L (22-30); CHLORIDE 108 mmol/L (98-107); GLUCOSE 97 mg/dL (75-110); LIPASE 64.4 U/L (23-300); POTASSIUM 3.9 mmol/L (3.6-5.0)
--- NOTE | 2018-07-31 04:03 | RADIOLOGY REPORT (SQ) ---
EXAM DESCRIPTION: XR CHEST 2 VIEWS COMPLETED DATE/TME: 07/31/2018 03:05 CLINICAL HISTORY: 68 years, Female, coughing up blood COMPARISON: 05/09/2018 NUMBER OF VIEWS: Two TECHNIQUE: Two views of the chest LIMITATIONS: None. FINDINGS: There are diffuse interstitial and airspace opacities. The heart is mildly enlarged. There is no pneumothorax or pleural effusion. There is no acute fracture. IMPRESSION: Diffuse interstitial and airspace opacities, which may represent pulmonary edema, pneumonia, and/or chronic changes. copyright 2010 [employer]- All Rights Reserved
--- NOTE | 2018-07-31 05:55 | RADIOLOGY REPORT (SQ) ---
EXAM DESCRIPTION: CT CHEST ANGIOGRAPHY WITHOUT THEN WITH IV CONTRAST COMPLETED DATE/TME: 07/31/2018 04:44 CLINICAL HISTORY: 68 years Female, Hemoptysis, abnormal chest x-ray Comparison: 10-06-15 Technique: IV contrast. Coronal and sagittal reformat. 3d reconstruction. This exam was performed according to our departmental dose-optimization program, which includes automated exposure control, adjustment of the mA and/or kV according to patient size and/or use of iterative reconstruction technique.[facility]: Dose Right [facility]: CareDose [facility]: Dose Right [facility]: Teradose 4D [facility]: [employer] LIMITATIONS: None Findings: No pulmonary embolus. No right ventricular strain. Mild chronic reticulonodular markings of bilateral lower lobes. Micronodule of the right middle lobe; no routine follow-up recommended. Inferior neck, axillae, mediastinum, airway, lymphatics, heart, vasculature, upper abdomen, and musculoskeleton appear otherwise unremarkable. Impression: No acute findings. Mild chronic interstitial disease.
[2018-07-31] MEDS ORDERED: SUCRALFATE 1 GM TABLET PO ONE (06:08)
[2018-07-31 06:59] VITALS: BP 158/93
--- NOTE | 2018-07-31 07:54 | EKG REPORT ---
SEVERITY:- ABNORMAL ECG - SINUS ARRHYTHMIA, RATE 45-62 CONSIDER LEFT VENTRICULAR HYPERTROPHY NONSPECIFIC T ABNORMALITIES, INFERIOR LEADS : Confirmed by: Gisele Jung MD 31-Jul-2018 07:54:10
== END 2018-07-31 07:00 | disposition home or self-care (01) ==
LOC: ER 23:11
DX: R04.2 Hemoptysis (principal); I25.10 Atherosclerotic heart disease of native coronary artery without angina pectoris; E78.00 Pure hypercholesterolemia, unspecified; I10 Essential (primary) hypertension; E03.9 Hypothyroidism, unspecified; Z88.6 Allergy status to analgesic agent; Z90.710 Acquired absence of both cervix and uterus
CPT/HCPCS: 93005; 99284; 36415; 87070; 87205; 83690; 85025; 80053; 84484; 83880; 71046; 71275; 93010; A9270